=== PATIENT | female | born 2005 | race Caucasian/White ===

== ENCOUNTER 2025-05-04 17:00 | Emergency (ER) | payer OTHER, SELFPAY ==
[2025-05-04] VITALS (7 sets, daily range): BP systolic 115–136; BP diastolic 68–76; PULSE 76–112; RESP 15; TEMP 36.7–37; O2SAT 99–100; BMI 17.2
--- NOTE | 2025-05-04 17:09 | XR_ITS ---
PROCEDURE INFORMATION: Exam: XR Right Wrist Exam date and time: 05/04/2025 5:18 PM Age: 19 years old Clinical indication: Pain; Wrist; Right; Additional info: Fall, RT wrist pain TECHNIQUE: Imaging protocol: Radiologic exam of the right wrist. Views: 3 or more views. COMPARISON: No relevant prior studies available. FINDINGS: Bones/joints: Minimally impacted transverse fracture of the distal radius metaphysis. No definitive intra-articular extension. No widening of the distal radioulnar joint. Very small ulnar styloid tip fracture. Soft tissues: Soft tissue swelling. IMPRESSION: 1. Minimally impacted transverse fracture of the distal radius metaphysis without definitive intra-articular extension. 2. Very small ulnar styloid tip fracture.
--- NOTE | 2025-05-04 17:12 | ED_ITS ---
<Statement entered by Candace Hale DO - 05/04/25 20:24> I was consulted by the [facility], and we discussed the complexity of problems being addressed. I approve the treatment and management plan for this patient's care in the emergency department, thus performing a substantial portion of the medical decision making. Candace Hale DO Discharge Plan Disposition Patient Disposition: Home, Self-Care Referrals Follow up/Referrals: Ese Pradhan APRN [Primary Care Provider, Medical] - See instructions Dre Bonds DO [Staff Physician, Orthopedics] - See instructions Activity Restrictions/Add. Instructions Additional Instructions/Restrictions: Use ice, elevation, rest and ibuprofen and Tylenol. Please call Dr. Bonds's office for appointment for casting for the right wrist fractures. Clinical Impressions Clinical Impression: Distal radial fracture, Fracture of ulnar styloid Instructions Patient Instructions: Wrist Fracture Print Language Print Language: Maltese Discharge ED Provider: Candace Hale General Adult HPI <Cari Oropeza (ED), VETERINARY PARASITOLOGIST - Last Filed: 05/04/25 18:51> General Chief complaint: PAIN Stated complaint: AO 05/04/25 1640 injury right wrist,nose,lips Time Seen by Provider: 05/04/25 17:03 History of Present Illness HPI narrative: 19-year-old female presents to the ED today after jumping on a pogo stick and falling injuring her right wrist nose and lips. She says her wrist hurts to move, she has a knot on her right wrist. She also has an abrasion on her right knee. She has a cut on her nose but is very small but it is bleeding. Her lips have been bleeding. No other injuries noted. She did not lose consciousness. No other injury noted. Related Data Allergies Allergy/AdvReac Type Severity Reaction Status Date / Time No Known Allergies Allergy Verified 05/04/25 17:16 PFS <Cari Oropeza (ED), VETERINARY PARASITOLOGIST - Last Filed: 05/04/25 18:51> PFS Disclaimer: The information contained in this section may have been updated after the patient was seen, as this information can be updated by other users. Social History (Updated 05/04/25 @ 18:51 by Cari Oropeza (ED), VETERINARY PARASITOLOGIST) Smoking Status: Never smoker alcohol intake: former current occupational status: other Travel in the last 8 weeks?: None Have you lived/traveled outside US in past 30 days?: No Contact w/someone who lives/traveled outside US past 30 days?: No Exposure to someone with infectious disease in past 14 days?: No Do you have a fever (greater than 100.4 F or 38 C)?: No Have you tested positive for COVID-19?: No Exposed to someone with COVID-19 in past 14 days?: No Do you have a sore throat?: No Do you have a cough?: No Do you have any weakness?: No Do you have any diarrhea?: No Are you experiencing any unusual bleeding?: No Do you have any muscle aches/pain?: No Do you have any abdominal pain?: No Are you experiencing loss of taste or smell?: No <Cari Oropeza (ED), VETERINARY PARASITOLOGIST - Last Filed: 05/04/25 18:51> ROS Obtained: Yes Systems reviewed as appropriate & no additional complaints except as documented Physical Exam <Cari Oropeza (ED), VETERINARY PARASITOLOGIST - Last Filed: 05/04/25 18:51> General General appearance: alert Head Head exam: other (Small cut on nose, lips have a small abrasion) Eye Eye exam: Present PERRL and EOMI ENT ENT exam: Present mucous membranes moist Neck Neck exam: Present full ROM and trachea midline Respiratory Respiratory exam: Present normal lung sounds bilaterally Cardiovascular Cardiovascular exam: Present normal rhythm, tachycardia, +S1 and +S2 Abdominal Exam Abdominal exam: Present soft and normal bowel sounds Extremities Exam Extremities exam: Present tenderness (Right wrist with obvious deformity), normal capillary refill and edema Neurological Exam Neurological exam: Present alert and oriented X3 Skin Skin exam: Present warm, dry and erythema (Erythema to right knee, facial abrasion) Medical Decision Making <Cari Oropeza (ED), VETERINARY PARASITOLOGIST - Last Filed: 05/04/25 18:51> Medical Records Screening: Per USPSTF and CDC recommendations, given the prevalence of disease in our region, it is our hospital?s policy to screen for HIV and viral Hepatitis for all patients aged 18 and over and those with ongoing risk factors. Edil Inquiry Pt receiving controlled substance: No Edil was queried for this patient: No Vital Signs: 05/04/25 17:11 05/04/25 17:20 05/04/25 17:40 Temperature 98.6 F Temperature Source Oral Pulse Rate Pulse Rate [Right Radial] 112 H Respiratory Rate 15 Blood Pressure 136/73 132/76 Blood Pressure [Right Arm] 129/72 Blood Pressure Mean 90 99 Blood Pressure Mean [Right Arm] 91 Blood Pressure Source Blood Pressure Source [Right Arm] Automatic Cuff Blood Pressure Position Blood Pressure Position [Right Arm] Sitting 02 Sat by Pulse Oximetry 100 Oxygen Delivery Method Room Air 05/04/25 18:00 05/04/25 18:20 05/04/25 18:40 Temperature Temperature Source Pulse Rate Pulse Rate [Right Radial] Respiratory Rate Blood Pressure 124/70 115/68 118/71 Blood Pressure [Right Arm] Blood Pressure Mean 88 83 85 Blood Pressure Mean [Right Arm] Blood Pressure Source Blood Pressure Source [Right Arm] Blood Pressure Position Blood Pressure Position [Right Arm] 02 Sat by Pulse Oximetry Oxygen Delivery Method 05/04/25 18:47 Temperature 98.1 F Temperature Source Oral Pulse Rate 76 Pulse Rate [Right Radial] Respiratory Rate 15 Blood Pressure 118/71 Blood Pressure [Right Arm] Blood Pressure Mean Blood Pressure Mean [Right Arm] Blood Pressure Source Automatic Cuff Blood Pressure Source [Right Arm] Blood Pressure Position Sitting Blood Pressure Position [Right Arm] 02 Sat by Pulse Oximetry Oxygen Delivery Method Room Air Orders (Tests/Meds): ED MEDICATIONS Discontinued Medications Generic Name Dose Route Start Last Admin Trade Name Freq PRN Reason Stop Dose Admin Acetaminophen 1,000 mg 05/04/25 17:10 05/04/25 17:23 Acetaminophen 500mg Tab PO 05/04/25 17:11 1,000 mg ONCE ONE Administration ORDERS Category Date Time Status Elbow XR right minimum 3 views [XR elbow RT min 3V] Exams 05/04/25 17:47 Completed Stat Wrist XR right minimum 3 views [XR wrist RT min 3V] Exams 05/04/25 17:09 Completed Stat XR forearm RT 2V Stat Exams 05/04/25 17:47 Completed Medical Decision Narrative: patient is a 19-year-old female presenting to the emergency department for evaluation of right wrist pain, facial abrasions after a fall. Patient is hemodynamically stable and nontoxic-appearing upon arrival, afebrile. Differ ential diagnosis includes wrist fracture versus sprain or strain. Workup will be conducted with hematologic labs, specific imaging. Initial inventions include analgesics. Right wrist x-ray showed a minimally impacted transverse fracture of the distal radius without intra-articular extension and a very small ulnar styloid tip fracture. I placed a volar splint. She has good vascular return. Patient and mother educated on splint and to call Dr. Bonds tomorrow for appointment for casting. Safe for discharge home <Candace Hale, DO - Last Filed: 05/04/25 20:24> Vital Signs: 05/04/25 17:11 05/04/25 17:20 05/04/25 17:40 Temperature 98.6 F Temperature Source Oral Pulse Rate Pulse Rate [Right Radial] 112 H Respiratory Rate 15 Blood Pressure 136/73 132/76 Blood Pressure [Right Arm] 129/72 Blood Pressure Mean 90 99 Blood Pressure Mean [Right Arm] 91 Blood Pressure Source Blood Pressure Source [Right Arm] Automatic Cuff Blood Pressure Position Blood Pressure Position [Right Arm] Sitting 02 Sat by Pulse Oximetry 100 Oxygen Delivery Method Room Air 05/04/25 18:00 05/04/25 18:20 05/04/25 18:40 Temperature Temperature Source Pulse Rate Pulse Rate [Right Radial] Respiratory Rate Blood Pressure 124/70 115/68 118/71 Blood Pressure [Right Arm] Blood Pressure Mean 88 83 85 Blood Pressure Mean [Right Arm] Blood Pressure Source Blood Pressure Source [Right Arm] Blood Pressure Position Blood Pressure Position [Right Arm] 02 Sat by Pulse Oximetry Oxygen Delivery Method 05/04/25 18:47 Temperature 98.1 F Temperature Source Oral Pulse Rate 76 Pulse Rate [Right Radial] Respiratory Rate 15 Blood Pressure 118/71 Blood Pressure [Right Arm] Blood Pressure Mean Blood Pressure Mean [Right Arm] Blood Pressure Source Automatic Cuff Blood Pressure Source [Right Arm] Blood Pressure Position Sitting Blood Pressure Position [Right Arm] 02 Sat by Pulse Oximetry Oxygen Delivery Method Room Air Orders (Tests/Meds): ED MEDICATIONS Discontinued Medications Generic Name Dose Route Start Last Admin Trade Name Freq PRN Reason Stop Dose Admin Acetaminophen 1,000 mg 05/04/25 17:10 05/04/25 17:23 Acetaminophen 500mg Tab PO 05/04/25 17:11 1,000 mg ONCE ONE Administration ORDERS Category Date Time Status Elbow XR right minimum 3 views [XR elbow RT min 3V] Exams 05/04/25 17:47 Completed Stat Wrist XR right minimum 3 views [XR wrist RT min 3V] Exams 05/04/25 17:09 Completed Stat XR forearm RT 2V Stat Exams 05/04/25 17:47 Completed Medical Decision Narrative: patient is a 19-year-old female presenting to the emergency department for evaluation of right wrist pain, facial abrasions after a fall. Patient is hemodynamically stable and nontoxic-appearing upon arrival, afebrile. Differential diagnosis includes but not limited to: Fracture, dislocation, sprain, strain, amongst others. Workup will be conducted with hematologic labs, specific imaging. Initial inventions include analgesics. Right wrist x-ray showed a minimally impacted transverse fracture of the distal radius without intra-articular extension and a very small ulnar styloid tip fracture. I placed a volar splint. She has good vascular return. Patient and mother educated on splint and to call Dr. Bonds tomorrow for appointment for casting. Safe for discharge home Procedures <Cari Oropeza (ED), VETERINARY PARASITOLOGIST - Last Filed: 05/04/25 18:51> Orthopedic Splinting/Casting Injury #1: Side: right Upper Extremity Injury Location: wrist Upper Extremity Immobilizer: volar splint Post Cast/Splinting Neuro Status: intact Post Cast/Splinting Vasc Status: intact Critical Care <Cari Oropeza (ED), VETERINARY PARASITOLOGIST - Last Filed: 05/04/25 18:51> Critical Care Time Critical Care Time: No
--- NOTE | 2025-05-04 17:19 | PC.NURSE ---
XR AT BEDSIDE
[2025-05-04] MEDS: ACETAMINOPHEN 500MG TAB 1000 MG PO (17:23)
--- NOTE | 2025-05-04 17:47 | XR_ITS ---
PROCEDURE INFORMATION: Exam: XR Right Elbow Exam date and time: 05/04/2025 5:59 PM Age: 19 years old Clinical indication: Injury or trauma; Fall; Additional info: Fall, distal radius FX TECHNIQUE: Imaging protocol: Radiologic exam of the right elbow. Views: 3 or more views. COMPARISON: CR XR WRIST RT MIN 3V 05/04/2025 5:18 PM FINDINGS: Bones/joints: No acute fracture or malalignment. No joint effusion. Soft tissues: Unremarkable. IMPRESSION: No acute osseous findings.
--- NOTE | 2025-05-04 17:47 | XR_ITS ---
PROCEDURE INFORMATION: Exam: XR Right Forearm Exam date and time: 05/04/2025 5:59 PM Age: 19 years old Clinical indication: Injury or trauma; Fall; Additional info: Distal radius TECHNIQUE: Imaging protocol: Radiologic exam of the right forearm. Views: 2 views. COMPARISON: CR XR WRIST RT MIN 3V 05/04/2025 5:18 PM FINDINGS: Bones/joints: Minimally impacted distal radius metaphyseal fracture. Soft tissues: Distal forearm and wrist soft tissue swelling. IMPRESSION: Minimally impacted distal radius metaphyseal fracture.
== END 2025-05-04 18:50 | disposition home or self-care (01) ==
PROVIDERS: Emergency Provider Student in an Organized Health Care Education/Training Program
DX: S52.321A Displaced transverse fracture of shaft of right radius, initial encounter for closed fracture (principal); S52.611A Displaced fracture of right ulna styloid process, initial encounter for closed fracture; S80.211A Abrasion, right knee, initial encounter; S00.511A Abrasion of lip, initial encounter; W19.XXXA Unspecified fall, initial encounter
CPT/HCPCS: 29125; 73080; 73090; 73110; 99283

== ENCOUNTER 2025-05-18 15:25 | Outpatient (CLI) | payer OTHER, SELFPAY ==
--- NOTE | 2025-05-18 15:28 | XR_ITS ---
FINAL REPORT CLINICAL HISTORY: right wrist fx..shielded COMPARISON: 05/04/2025 FINDINGS: AP, oblique, and lateral views of the right wrist were obtained. Plaster cast obscures detail. There is minimal healing of the distal radial fracture. No change in alignment. No new osseous abnormality identified. The joint spaces are preserved. The soft tissues are normal. IMPRESSION: Minimal healing distal radial fracture. Reviewed, Interpreted and Dictated by Casie Herrera MD Transcribed by Moon Carey Authenticated and [facility]
== END 2025-05-18 23:59 | disposition home or self-care (01) ==
LOC: RAD 15:26
PROVIDERS: Visit Provider Physician Assistant
DX: S52.501D Unspecified fracture of the lower end of right radius, subsequent encounter for closed fracture with routine healing (principal); X58.XXXD Exposure to other specified factors, subsequent encounter
CPT/HCPCS: 73110

== ENCOUNTER 2025-05-19 10:54 | Emergency (ER) | payer OTHER, SELFPAY ==
--- OUTSIDE RECORDS SUMMARY | 2025-03-31 11:45 | XMS_ITS | Encounter Summary ---
Author Organization [facility] [facility] ([place], [place], [place], [place]) Address [address] [place] [address] Care Team Providers Care Boiler Fitter Name Role Phone Jazmin Fernandes DO Primary Care Provider [phone] Reason for Referral * Consultation (Routine) - Closed Specialty Diagnoses / Procedures Referred By Valentin t Referred To Contact Cardiology Diagnoses MVP (mitral valve prolapse) Jazmin Fernandes DO [address] [place] [address] Phone: tel: fax: [facility] Cardiology - [address] [place] [address] Phone: tel: fax: Referral ID Status Reason Start Date Expiration Date V isits Requested Visits Authorized [id number] Closed Specialty Services Required 03/31/2025 03/31/2026 1 1 Reason for Visit * Reason Comments Follow-up Labs. Encounter Details Date Type Department Care Team (Latest Contact Info) Description 03/31/2025 11:45 AM EDT Video - Telemedicine [facility] Primary Care [address] [place] [address] Jazmin Fernandes DO [address] [place] [address] Encounter to discuss test results (Primary Dx); MVP (mitral valve prolapse); Candidiasis; Vitamin C deficiency Social History Tobacco Use Types Packs/Day Years Used Date Smoking Tobacco: Never Smokeless Tobacco: Never Tobacco Cessation:Counseling Given: Not Answered Alcohol Use Standard Drinks/Week Comments Never 0 (1 standard drink = 0.6 oz pur e alcohol) Comments No Sex and Gender Information Value Date Recorded Sex Assigned at Not on file Legal Sex Female 12:40 PM CDT Gender Identity Not on file Sexual Orientation Not on file documented as of this encounter Last Filed Vital Signs Vital Sign Reading Time Taken Comments Blood Pressure - - Pulse - - Temperature - - Respiratory Rate - - Oxygen Saturation - - Inhaled Oxygen Concentration - - Weight 54 kg (119 lb) 03/31/2025 11:46 AM EDT Height 177.8 cm (5' 10 ) 03/31/2025 11:46 AM EDT Body Mass Index 17.07 03/31/2025 11:46 AM EDT documented in this encounter Progress Notes * Jazmin Fernandes, DO - 03/31/2025 11:45 AM EDT Type of Service: Office Visit via Telemedicine Subjective: Patient ID: Kelley Odell is a 19 y.o. female. Telemedicine Informed Consent: Telemedicine Audio/Visual Informed Consent: The risks, benefits and alternatives to the virtual visit were explained to the patient, and the patient and/or caregiver verbally consented to this modality of care. The visit was carried out using secure real-time audio-visual technology, and all parties in the room were identified and approved by the patient prior to the consult. Unless noted otherwise, the provider was located at their usual clinic location, and the patient was at their place of residence. Any physical exam was assisted by the patient and/or a caregiver. Mode of Transmission: Telemedicine via two-way interactive audiovisual telecommunication Basis for Telemedicine: Patient request Others in Attendance: None PATIENT LOCATION (City, State, Facility Type): [address] [place] [id number] PROVIDER LOCATION (City, State, Facility Type): [facility] [address] [place] [address] [place] [address] Dept Dept START TIME: 1252 STOP TIME: 1315 Chief Complaint Patient presents with Follow-up Labs. I have reviewed and/or updated the following: Tobacco Allergies Meds Problems Med Hx SurgHx Fam Hx HPI Kelley Odell is a 19 y.o. female with active problems as below presents to clinic today forFollow-up (Labs. ) Clobetasol steroids have helped rough patches have improved. Has not started flax seed oil is completing out omega -3 she currently has Has not started Vit C supplement Elevated B 6 on testing, did not take supplement prior to lab draw Stomach improved with treating fungal overgrowth Having daily BMs, denies bloating Objective: Outpatient Medications Prior to Visit Medication Sig Dispense Refill clobetasoL (CLOBEX) 0.05 % shampoo Apply thin film to dry scalp once daily; leave in place for 15 minutes, then add water, lather, and rinse thoroughly. Do not use more than 4 weeks in a row.. 118 mL3 clobetasoL (TEMOVATE) 0.05 % ointment Apply topically 2 (two) times daily. 30 g 0 UNKNOWN Vitamin D Digestive enzymes Erwin IGG 2000 Para 1 and [place]al[place] 2 Biotoxin binder Advanced tudca Calming magnesium Activated b complex Hyst pro Monterey 3 S.Mallory . No facility-administered medications prior to visit. Physical Exam Constitutional: Appearance: Normal appearance. Normal weight. Not ill-appearing. HENT: Head: Normocephalic and atraumatic. Nose: Nose normal. Neurological: General: No focal deficit present. Mental Status: Alert and oriented to person, place, and time. Mental status is at baseline. Psychiatric: Mood and Affect: Mood normal. Behavior: Behavior normal. Thought Content: Thought content normal. Judgment: Judgment normal. Vitals: 03/31/25 1146 Weight: 54 kg (119 lb) Height: 1.778 m (5' 10 ) Body mass index is 17.07 kg/m??. Results: Office Visit on 02/26/2025 Component Date Value Ref Range Status Vitamin B12 03/09/2025 771 232 - 1,245 pg/mL Final Vit. B1, Whole Blood 03/09/2025 160.4 66.5 - 200.0 nmol/L Final Vitamin B6 03/09/2025 96.5 (H) 3.4 - 65.2 ug/L Final Comment: Deficiency: <3.4 Marginal: 3.4 - 5.1 Adequate: >5.1 Folate (Folic Acid), Serum 03/09/2025 19.6 >3.0 ng/mL Final Comment: A serum folate concentration of less than 3.1 ng/mL is considered to represent clinical deficiency. Insulin 03/09/2025 11.3 2.6 - 24.9 uIU/mL Final LDH 03/09/2025 190 119 - 226 IU/L Final Assessment/Plan: Assessment/Plan: Kelley Odell is a 19 y.o. female who has been evaluated today for The primary encounter diagnosis was Encounter to discuss test results. Diagnoses of MVP (mitral valve prolapse), Candidiasis,and Vitamin C deficiency were also pertinent to this visit. Discussion: Stop additional B complex Continue MVI and Monterey -3 Start Vit C supplementation as discussed Supplement regimen is appropriate and there are signs of maldigestion. I suspect she is not absorbing well and this is leading to ketosis and nutritional deficiencies Continue to work with health motor coach operator and start Repairavite for gut cell health. MVP newly identified asymptomatic Referral to cards for evaluation and monitoring Supplement recommendations: Monterey-3 Vegan Blackberry Smoothie (454 Grams) ([employer]): Please take 1 Tablespoon (tbsp) x once per day / anytime (complete the bottle). RepairVite??? Caramel (155.1 Grams) ([employer]): Please take 1.00 scoop x once per day /anytime for 1 month ICD-10-CM ICD-9-CM 1. Encounter to discuss test results Z71.2 V65.49 2. MVP (mitral valve prolapse) I34.1 424.0 Ambulatory referral to Cardiology 3. Candidiasis B37.9 112.9 4. Vitamin C deficiency E54 267 Return in about 3 months (around 07/01/2025) for Establish care with Allison Junior APRN. Jazmin Fernandes, DO This note was partially generated using AisleFinderation System, and there may be some incorrect words, spellings, and punctuation that were not noted in checking the note before saving. Note to Patient: The Cure Act makes medical noted like these available to patients in the interest of transparency. However, be advised this is a medical document. It is intended as peerto peer communication. It is written in medical language and may contain abbreviations or verbiage that are unfamiliar. It may appear blunt or direct. Medical documents are intended to carry relevantinformation, facts as evident, and the clinical opinion of the physician. documented in this encounter Plan of Treatment Upcoming Encounters Date Type Department Care Team (Late st Contact Info) Description 11/02/2025 8:30 AM EDT Office Visit [facility] Cardiology - [address] [place] [id number] Sirena Caldera MD [address] [place], [place] [id number] 05/04/2026 9:00 AM EDT Office Visit [facility] Care [address] [place] [address] Ese Pradhan, FRUIT CHECKER [address] [place] [address] Scheduled Referrals Name Type Priority Associated Diagnoses Order Schedule Ambulatory referral to Cardiology Outpatient Referral Routine MVP (mitral valve prolapse) Expected: 03/31/2025 (Approximate), Expires: 03/31/2026 documented as of this encounter Visit Diagnoses Diagnosis Encounter to discuss test results- Primary Other specified counseling MVP (mitral valve prolapse) Mitral valve disorders Candidiasis Candidiasis of unspecified site Vitamin C deficiency Ascorbic acid deficiency documented in this encounter Care Teams Boiler Fitter Relationship Specialty Start Date End Date Jazmin Fernandes DO [address] [place] [address] PCP - General Family Medicine 02/26/25 05/03/25 documented as of this encounter
--- OUTSIDE RECORDS SUMMARY | 2025-05-04 08:45 | XMS_ITS | Encounter Summary ---
Author Organization [employer] ([place], [place], [place], [place]) Address [address] [place] [address] Care Team Providers Care Coloring Checker Name Role Phone Ese Pradhan APRN Primary Care Provider [phone] Reason for Visit * Reason Comments Establish Care Pt referred for MVP Pt states intermittent palpsDenies CP/SOA * Consultation (Routine) - Closed Specialty Diagnoses / Procedures Referred By Contac t Referred To Contact Cardiology Diagnoses MVP (mitral valve prolapse) Jazmin Fernandes DO [address] [place] [address] Phone: tel: fax: [facility] [address] [address] Phone: tel: fax: Referral ID Status Reason Start Date Expiration Date V isits Requested Visits Authorized [id number] Closed Specialty Services Required 03/31/2025 03/31/2026 1 1 Encounter Details Date Type Department Care Team (Late st Contact Info) Description 05/04/2025 8:45 AM EDT Office Visit [facility] [address] [address] Jazmin Fernandes DO [address] [place] [address] Sirena Caldera MD [address] [facility] [address] [place] [address] Cardiac murmur, previously undiagnosed (Primary Dx); Nonrheumatic mitral valve regurgitation; Mitral valve prolapse; Palpitations Social History Tobacco Use Types Packs/Day Years [...] Sign Reading Time Taken Comments Blood Pressure 112/69 05/04/2025 8:52 AM EDT Pulse 77 05/04/2025 8:52 AM EDT Temperature - - Respiratory Rate - - Oxygen Saturation 99% 05/04/2025 8:52 AM EDT Inhaled Oxygen Concentration - - Weight 55.8 kg (123 lb) 05/04/2025 8:52 AM EDT Height - - Body Mass Index 17.65 03/31/2025 11:46 AM EDT documented in this encounter Patient Instructions * Attachments The following attachments cannot be sent through Care Everywhere. * Mitral Valve Regurgitation (Iranian) documented in this encounter Progress Notes * Sirena Caldera MD - 05/04/2025 8:45 AM EDT Subjective: Kelley Odell is a 19 y.o. female. Chief Complaint Patient presents with [facility] Care Pt referred for MVP Pt states intermittent palps Denies CP/SOA I have reviewed and/or updated the following: Tobacco Allergies Meds Problems Med Hx Surg Hx Fam Hx 19 yo female new patient with newly dx MVP and moderate MR. She denies CP nor SOA. No physical limitations. Her mother accompanies her today. She says her father was evaluated for Marfan's due to similar body habitus and was told he didn't have it. Pt did have one episode of palpitations after awakening in the morning but felt it was due to panic attack. No further episodes. She denies hyper flexibility. No Fhx of aortic dissection or SCD Review of Systems Constitutional: Negative. HENT: Negative. Eyes: Negative. Respiratory: Negative. Cardiovascular: Positive for palpitations. Gastrointestinal: Negative. Endocrine: Negative. Genitourinary: Negative. Musculoskeletal: Negative. Skin: Negative. Allergic/Immunologic: Negative. Neurological: Negative. Hematological: Negative. Psychiatric/Behavioral: Negative. Objective: BP 112/69 Pulse 77 Wt 55.8 kg (123 lb) SpO2 99% BMI 17.65 kg/m?? Physical Exam Vitals reviewed. Constitutional: Comments: Tall, thin body habitus HENT: Head: Normocephalic and atraumatic. Cardiovascular: Rate and Rhythm: Normal rate and regular rhythm. Pulses: Normal pulses. Heart sounds: Murmur heard. Systolic murmur is present with a grade of 3/6. Pulmonary: Effort: Pulmonary effort is normal. Breath sounds: Normal breath sounds. Abdominal: General: Bowel sounds are normal. Palpations: Abdomen is soft. Musculoskeletal: General: Normal range of motion. Right lower leg: No edema. Left lower leg: No edema. Skin: General: Skin is warm and dry. Neurological: General: No focal deficit present. Mental Status: She is alert. Mental status is at baseline. Psychiatric: Mood and Affect: Mood normal. Thought Content: Thought content normal. ECG: NSR, DAVID, RsR' Assessment: 1. Cardiac murmur, previously undiagnosed 2. Nonrheumatic mitral valve regurgitation 3. Mitral valve prolapse 4. Palpitations Plan: 1. MVP and moderate MR - asymptomatic - will see back in 6 months - may try to get genetic testing to assess for Marfans/Loeys-stephanie, etc. If symptoms arise, repeat echo 2. Palpitations - one time episode -pt will call if recurrent and will get monitor Return in about 6 months (around 11/01/2025). documented in this encounter Plan of Treatment Upcoming Encounters Date Type Department Care Team (Late st Contact Info) Description 11/02/2025 8:30 AM EDT Office Visit [facility] - [facility] [address] [place] [address] Sirena Caldera MD [address] [facility] [address] [place] [address] 05/04/2026 9:00 AM EDT Office Visit [facility] [address] [place] [address] Ese Pradhan APRN [address] [place] [address] documented as of this encounter Procedures Procedure Name Priority Date/Time Associated Diagnosis Comments ECG 12-LEAD Routine 05/04/2025 12:16 PM EDT Cardiac murmur, previously undiagnosed Nonrheumatic mitral valve regurgitation Mitral valve prolapse Palpitations documented in this encounter Results * ECG 12 lead (05/04/2025 12:16 PM EDT) Sirena Caldera MD ECG ORDERABLES Final Result documented in this encounter Visit Diagnoses Diagnosis Cardiac murmur, previously undiagnosed- Primary Nonrheumatic mitral valve regurgitation Mitral valve prolapse Mitral valve disorders Palpitations documented in this encounter Care Teams Coloring Checker Relationship Specialty Start Date End Date Ese Pradhan APRN [address] [place] [address] PCP - General Family Medicine 05/04/25 documented as of this encounter
--- OUTSIDE RECORDS SUMMARY | 2025-05-04 10:30 | XMS_ITS | Encounter Summary ---
Author Organization [employer] ([place], [place], [place], [place]) Address [address] [place] [address] Care Team Providers Care News Clerk Name Role Phone Ese Pradhan APRN Primary Care Provider [phone] Reason for Referral * Consultation (Routine) - Authorized Specialty Diagnoses / Procedures Referred By Valentin jacome Referred To Contact Dermatology Diagnoses Psoriasis Ese Pradhan APRN [address] [place] [address] Phone: tel: fax: Referral ID Status Reason Start Date Expiration Date Visits Requested Visits Authorized [id number] Authorized Specialty Services Required 05/04/2025 05/04/2026 1 1 Reason for Visit * Reason Comments Establish Care Establish care Encounter Details Date Type Department Care Team (Late st Contact Info) Description 05/04/2025 10:30 AM EDT Office Visit [facility] Care [address] [place] [address] Ese Pradhan APRN [address] [place] [address] Encounter to establish care (Primary Dx); Psoriasis; MVP (mitral valve prolapse) Social History Tobacco Use Types Packs/Day Years [...] Sign Reading Time Taken Comments Blood Pressure 109/72 05/04/2025 10:09 AM EDT Pulse 79 05/04/2025 10:09 AM EDT Temperature 36.4 C (97.6 F) 05/04/2025 10:09 AM EDT Respiratory Rate 16 05/04/2025 10:09 AM EDT Oxygen Saturation 100% 05/04/2025 10:09 AM EDT Inhaled Oxygen Concentration - - Weight 54.5 kg (120 lb 4 oz) 05/04/2025 10:09 AM EDT Height 177.8 cm (5' 10 ) 05/04/2025 10:09 AM EDT Body Mass Index 17.25 05/04/2025 10:09 AM EDT documented in this encounter Patient Instructions * Patient Instructions* Ese Pradhan APRN - 05/04/2025 10:30 AM EDT [facility] Address: [address] [place] [address] documented in this encounter Progress Notes * Ese Pradhan APRN - 05/04/2025 10:30 AM EDT Images from the original note were not included. Subjective: Kelley Odell is a 19 y.o. female. Chief Complaint Patient presents with Establish Care Establish care I have reviewed and/or updated the following: Tobacco Allergies Meds Problems Med Hx Surg Hx Fam Hx Here to establish care with me, previously patient of Dr. Fernandes Previously working with health agile scrum coach for prevention of psoriasis, did a mold detox, liver cleanse, and parasite cleanse. States this did not help with her psoriasis. States the cream helps her, but as soon as she stops cream, spots come back. These are on her face,and over the rest of her body. Previously visited the knockout machine operator and was also given a cream, would like to see if there are other treatment options. MVP - States this is largely asymptomatic, occasionally has heart palpitations that last only a second. Does not get dizzy spells or have episodes of syncope. States her activity tolerance is good, does not have issues with shortness of breath or chest pain with activity. Review of Systems Constitutional: Negative for activity change, appetite change, chills, fatigue, fever and unexpected weight change. Respiratory: Negative for cough, chest tightness, shortness of breath and wheezing. Cardiovascular: Negative for chest pain, palpitations and leg swelling. Gastrointestinal: Negative for abdominal distention, abdominal pain, blood in stool, constipation, diarrhea, nausea and vomiting. Skin: Positive for rash and wound. Negative for pallor. Psychiatric/Behavioral: Negative for confusion, decreased concentration, hallucinations and sleep disturbance. The patient is not hyperactive. Objective: BP 109/72 Pulse 79 Temp 97.6 ??F (36.4 ??C) Resp 16 Ht 1.778 m (5' 10 ) Wt 54.5 kg (120 lb 4 oz) LMP 04/21/2025 SpO2 100% BMI 17.25 kg/m?? Physical Exam Vitals and nursing note reviewed. Constitutional: General: She is not in acute distress. Appearance: Normal appearance. She is not ill-appearing. HENT: Head: Normocephalic. Eyes: Extraocular Movements: Extraocular movements intact. Conjunctiva/sclera: Conjunctivae normal. Pupils: Pupils are equal, round, and reactive to light. Cardiovascular: Rate and Rhythm: Normal rate and regular rhythm. Pulses: Normal pulses. Heart sounds: Murmur heard. Pulmonary: Effort: Pulmonary effort is normal. No respiratory distress. Breath sounds: Normal breath sounds. No stridor. No wheezing, rhonchi or rales. Chest: Chest wall: No tenderness. Abdominal: General: Abdomen is flat. There is no distension. Palpations: Abdomen is soft. There is no mass. Tenderness: There is no abdominal tenderness. There is no guarding or rebound. Hernia: No hernia is present. Musculoskeletal: Right lower leg: No edema. Left lower leg: No edema. Skin: General: Skin is warm and dry. Findings: Lesion present. Comments: Diffuse scaling erythematous patches Neurological: General: No focal deficit present. Mental Status: She is alert and oriented to person, place, and time. Psychiatric: Mood and Affect: Mood normal. Behavior: Behavior normal. Assessment: 1. Encounter to establish care 2. Psoriasis 3. MVP (mitral valve prolapse) Plan: ICD-10-CM ICD-9-CM 1. Encounter to establish care Z76.89 V65.8 Reviewed PMH. 2. Psoriasis L40.9 696.1 Ambulatory referral to Dermatology Given suggestions of preferred dermatologists, hopeful to have alternative therapies presented. 3. MVP (mitral valve prolapse) I34.1 424.0 Continue following with cardiology. Discussed red flag symptoms of shortness of breath, chest pressure, or dizziness. Return in about 1 year (around 05/04/2026) for Annual Physical. documented in this encounter Plan of Treatment Upcoming Encounters Date Type Department Care Team (Late st Contact Info) Description 11/02/2025 8:30 AM EDT Office Visit [facility] Cardiology - [address] [place] [address] Sirena Caldera MD [address] [place] [address] 05/04/2026 9:00 AM EDT Office Visit [facility] [address] [place] [address] Ese Pradhan APRN [address] [id number] Scheduled Referrals Name Type Priority Associated Diagnoses Order Schedule Ambulatory referral to Dermatology Outpatient Referral Routine Psoriasis Expected: 05/04/2025, Expires: 08/02/2025 documented as of this encounter Visit Diagnoses Diagnosis Encounter to establish care- Primary Psoriasis Other psoriasis MVP (mitral valve prolapse) Mitral valve disorders documented in this encounter Care Teams News Clerk Relationship Specialty Start Date End Date Ese Pradhan APRN [address] [place] [address] PCP - General Family Medicine 05/04/25 documented as of this encounter
--- NOTE | 2025-05-19 10:54 | ECG_ITS ---
APPROVED REPORT Exam: Resting ECG HR:74 bpm ECG Measurements Heart Rate 74 AXES MO 137 P 77 QRSd 100 QRS 86 QT 388 T 64 QTc 415 Conclusion SINUS RHYTHM POSSIBLE RIGHT VENTRICULAR CONDUCTION DELAY [RSR (QR) IN V1/V2] Electronically signed by : SAQIB AMARAL, 05/21/2025 09:25:32
[2025-05-19 10:55] VITALS: BP 154/129; PULSE 79; RESP 15; TEMP 36.6; O2SAT 100; BMI 17.2
--- NOTE | 2025-05-19 10:58 | ED_ITS ---
<Statement entered by Toy Bai MD - 05/19/25 16:21> I consulted the [facility], and we discussed the complexity of the problems being addressed. I approved the treatment and management plan for this patient's care in the emergency department, thus performing a substantial portion of the medical decision making. Romero Bai MD Discharge Plan Disposition Patient Disposition: Home, Self-Care Condition: Good Prescriptions Prescriptions: No Action No Known Home Medications Referrals Follow up/Referrals: Provider,Referral, MD [Referring, Medical] - See instructions Activity Restrictions/Add. Instructions Additional Instructions/Restrictions: Please return to the emergency department with any worsening signs or symptoms. Please follow-up with your PCP and orthopedic doctor in the upcoming days/weeks. Clinical Impressions Clinical Impression: Syncope, vasovagal Instructions Patient Instructions: DI for Syncope in Adults (Fainting) Print Language Print Language: Nigerien Discharge ED Provider: Toy Bai General Adult HPI General Chief complaint: Syncope Stated complaint: seizure Time Seen by Provider: 05/19/25 10:56 Mode of Arrival: Ambulatory Source of Information: Patient and Parent(s) Limitations: No Limitations History of Present Illness HPI narrative: 19-year-old female presents the emergency department from orthopedic clinic, for a presyncopal versus syncopal episode, she is accompanied by her mother, patient was having her cast removed via cast saw, when she felt like she was getting hot nauseous and lightheaded, appeared to have a presyncopal/syncopal event according to mother and orthopedic clinic staff. Patient states she has not had anything like this happen before, she states that she is currently asymptomatic, no fever no chills no chest pain no shortness of breath no nausea no vomiting no constipation no diarrhea, no urinary symptomatology, patient is a non-smoker, denies any alcohol or drug use, has no other real relevant past medical history except for distal radius fracture which is currently undergoing treatment with cast immobilization via orthopedics. Initial triage vitals are unremarkable. Patient has no history of seizure disorder, no previous history of presyncopal/syncopal events. Please note that above description of symptoms, in this electronic medical record under categorization of recalled from ER triage doctor by RN are reflective of an initial nursing assessment, however, is not reflective of my full history and physical exam that was personally taken and clarified. Consequentially, this preceding description of symptoms, which may include the patient's categorized chief complaint in the EMR, do not reflect my personal clinical impression, and the ultimate description of history of present illness and patient stated complaints should be deferred to this section of the note. Unless stated otherwise or congruent with this section of the note, additional signs, symptoms, or incongruence should be interpreted as inaccurate with my clinical impression. Onset (ago): hour(s) Related Data Home Medications ?Medication ?Instructions ?Recorded ?Confirmed No Known Home Medications 05/05/2504/28 Allergies Allergy/AdvReac Type Severity Reaction Status Date / Time No Known Allergies Allergy Verified 05/19/25 09:40 [facility] Disclaimer: The information contained in this section may have been updated after the patient was seen, as this information can be updated by other users. Social History Smoking Status: Never smoker alcohol intake: former current occupational status: other Travel in the last 8 weeks?: None Have you lived/traveled outside [place] in past 30 days?: No Contact w/someone who lives/traveled outside US past 30 days?: No Exposure to someone with infectious disease in past 14 days?: No Do you have a fever (greater than 100.4 F or 38 C)?: No Have you tested positive for COVID-19?: No Exposed to someone with COVID-19 in past 14 days?: No Do you have a sore throat?: No Do you have a cough?: No Do you have any weakness?: No Do you have any diarrhea?: No Are you experiencing any unusual bleeding?: No Do you have any muscle aches/pain?: No Do you have any abdominal pain?: No Are you experiencing loss of taste or smell?: No ROS Obtained: Yes All systems reviewed & no additional complaints except as documented Physical Exam General General appearance: alert and in no apparent distress Head Head exam: atraumatic and normocephalic Eye Eye exam: Present PERRL and EOMI ENT ENT exam: Present mucous membranes moist Neck Neck exam: Present normal inspection Chest Chest inspection: Present normal inspection and symmetric chest wall rise Respiratory Respiratory exam: Present normal lung sounds bilaterally; Absent respiratory distress Cardiovascular Cardiovascular exam: Present regular rate and normal rhythm Abdominal Exam Abdominal exam: Present soft; Absent tenderness Extremities Exam Extremities exam: Present normal inspection Neurological Exam Neurological exam: Present alert, oriented X3 and other (Nonpostictal appearing, moves extremities to command) Psychiatric Psychiatric exam: Present normal affect Skin Skin exam: Present warm and dry Medical Decision Making Medical Records Medical records reviewed: Yes I reviewed the patient's medical records. Screening: Per USPSTF and CDC recommendations, given the prevalence of disease in our region, it is our hospital?s policy to screen for HIV and viral Hepatitis for all patients aged 18 and over and those with ongoing risk factors. Edil Inquiry Pt receiving controlled substance: No Edil was queried for this patient: No Vital Signs: 05/19/25 10:55 05/19/25 11:10 Temperature 97.9 F Temperature Source Oral Pulse Rate [Right Radial] 79 Respiratory Rate 15 Blood Pressure [Right Arm] 154/129 H Blood Pressure Mean [Right Arm] 137 Blood Pressure Source [Right Arm] Automatic Cuff Blood Pressure Position [Right Arm] Supine 02 Sat by Pulse Oximetry 100 100 Oxygen Delivery Method Room Air Room Air Lab Data Lab results reviewed: Yes I reviewed the patient's lab results. Lab Results 05/19/25 10:55: WBC 9.3, RBC 4.42, Hgb 13.1, Hct 39.4, MCV 89.1, MCH 29.6, MCHC 33.2, RDW 12.0, Plt Count 230, MPV 10.3, Neut % (Auto) 52.8, Lymph % (Auto) 34.5, [place] % (Auto) 8.0, Eos % (Auto) 3.7, Baso % (Auto) 0.5, Neut # (Auto) 4.9, Lymph # (Auto) 3.2, [place] # (Auto) 0.7, Eos # (Auto) 0.3, Baso # (Auto) 0.1, Sodium 138, Potassium 3.9, Chloride 103, Carbon Dioxide 25, Anion Gap 13.9, BUN 14, Creatinine 0.70, Estimated Creat Clear 110, Estimated GFR 107, Est GFR ( Amer) 129, Glucose 110 H, Lactate 1.8, Calcium 9.3, Total Bilirubin 0.6, AST 41 H, ALT 31, Alkaline Phosphatase 59, Troponin I < 0.01, Total Protein 7.7, Albumin 4.8, Globulin 2.9, Albumin/Globulin Ratio 1.7 05/19/25 10:55 05/19/25 10:55 Orders (Tests/Meds): ORDERS Category Date Time Status Complete Blood Count Auto Diff Stat Lab 05/19/25 10:55 Completed Comprehensive Metabolic Panel Stat Lab 05/19/25 10:55 Completed HIV Combo Stat Lab 05/19/25 10:55 Received Hepatitis C Ab Qual. W/ RFX Stat Lab 05/19/25 10:55 Received Lactic Acid Stat Lab 05/19/25 10:55 Completed Troponin I Q3H Lab 05/19/25 14:00 Ordered Troponin I Q3H Lab 05/19/25 17:00 Ordered Troponin I Stat Lab 05/19/25 10:55 Completed Medical Decision Narrative: 19-year-old female presents the emergency department with a presyncopal/syncopal event, see HPI for detail past medical history, differential diagnose include but not limited to, vasovagal syncope, situational syncope, cardiogenic syncope, cardiac arrhythmia, electrolyte disturbance, thought to be less likely but seizure is in differential, among others. I discussed this patient's case with the attending physician Dr. Bai Will obtain basic laboratory studies troponin, lactic acid level, EKG. CBC unremarkable. CMP is unremarkable, no lactic acidosis, troponin within normal limits at less than zero 0.1 I discussed the results with the patient at the bedside, patient most likely had a benign situational/vasovagal syncopal episode, classic presentation with event/clinical history as provided by patient and family. Patient and family were given strict ED return precautions, patient has remained hemodynamically stable throughout her time in the emergency department. She has no other acute complaints. Patient is cleared to be discharged home to self-care. Patient will follow-up with orthopedic provider and PCP in the upcoming days/weeks. Critical Care Critical Care Time Critical Care Time: No
[2025-05-19 11:04] LABS: Hematocrit 39.4 % (37.0-47.0); Hemoglobin 13.1 g/dL (12.2-16.2); Immature Granulocytes % 0.5 %; Mean Corpuscular HGB Conc 33.2 g/dL (31.8-35.4); Mean Corpuscular Hemoglobin 29.6 pg (27.0-31.2); Mean Corpuscular Volume 89.1 fl (81-99); Nucleated Red Blood Cells % 0 %; Platelet Count 230 K/mm3 (142-424); Red Blood Count 4.42 M/mm3 (4.20-5.40); Red Cell Distribution Width-SD 39.4 fL; White Blood Count 9.3 K/mm3 (4.5-13.0)
--- OUTSIDE RECORDS SUMMARY | 2025-05-19 11:04 | XMS_ITS | Encounter Summary ---
Author Organization [email or web address] ([place], [place], [place], [place]) Address [address] [place] [address] Care Team Providers Care General Road Supervisor Name Role Phone Ese Pradhan APRN Primary Care Provider [phone] Encounter Details Date Type Department Care Team (Late st Contact Info) Description 05/14/2025 Abstract [facility] Primary Care [address] [place] [address] Ese Pradhan APRN [address] [place] [address] Social History Tobacco Use Types Packs/Day Years Used Date Smoking Tobacco: Never Smokeless Tobacco: Never Alcohol Use Standard Drinks/Week Comments Never 0 (1 standard drink = 0.6 oz pur e alcohol) Comments No Sex and Gender Information Value Date Recorded Sex Assigned at Not on file Legal Sex Female 12:40 PM CDT Gender Identity Not on file Sexual Orientation Not on file documented as of this encounter Plan of Treatment Upcoming Encounters Date Type Department Care Team (Late st Contact Info) Description 11/02/2025 8:30 AM EDT Office Visit [facility] Cardiology - [address] [place] [id number] Sirena Caldera MD [address] [place], [place] [id number] 05/04/2026 9:00 AM EDT Office Visit [facility] Primary Care [address] [place] [address] Ese Pradhan, ADULT PROTECTIVE CASEWORKER [address] [place] [address] documented as of this encounter Visit Diagnoses Not on filedocumented in this encounter Care Teams General Road Supervisor Relationship Specialty Start Date End Date Ese Pradhan, ADULT PROTECTIVE CASEWORKER [address] [place] [address] PCP - General Family Medicine 05/04/25 documented as of this encounter
--- OUTSIDE RECORDS SUMMARY | 2025-05-19 11:04 | XMS_ITS | Encounter Summary ---
Author Organization [employer] ([place], [place], [place], [place]) Address [address] [place] [address] Care Team Providers Care Publishing Systems Analyst Name Role Phone Ese Pradhan APRN Primary Care Provider [phone] Encounter Details Date Type Department Care Team (Late st Contact Info) Description 05/08/2025 Abstract [facility] Primary Care [address] [place] [address] Ese Pradhan APRN [address] [place] [address] Social History Tobacco Use Types [...] Description 11/02/2025 8:30 AM EDT Office Visit [facility] Cardiology - [address] [place] [phone] Sirena Caldera MD [address] [place], [place] [id number] 05/04/2026 9:00 AM EDT Office Visit [facility] Primary Care [address] [place] [address] Ese Pradhan, BILINGUAL BRANCH MANAGER [address] [place] [address] documented as of this encounter Visit Diagnoses Not on filedocumented in this encounter Care Teams Publishing Systems Analyst Relationship Specialty Start Date End Date Ese Pradhan, BILINGUAL BRANCH MANAGER [address] [place] [address] PCP - General Family Medicine 05/04/25 documented as of this encounter
--- OUTSIDE RECORDS SUMMARY | 2025-05-19 11:04 | XMS_ITS | Encounter Summary ---
Author Organization [employer] ([place], [place], [place], [place]) Address [address] [place] [address] Care Team Providers Care Production Lead Name Role Phone CarolynnEse leonardo Jamari GAINES Primary Care Provider [phone] Encounter Details Date Type Department Care Team (Late st Contact Info) Description 05/08/2025 Abstract [facility] Primary Care [address] [place] [address] Jazmin Fernandes DO [address] [place] [address] Social History Tobacco Use Types [...] Description 11/02/2025 8:30 AM EDT Office Visit [facility] Cardiology - [address] [place] [address] Sirena Caldera MD [address] [place], [place] [id number] 05/04/2026 9:00 AM EDT Office Visit [facility] Primary Care [address] [place] [address] Ese Pradhan APRN [address] [place] [address] documented as of this encounter Visit Diagnoses Not on filedocumented in this encounter Care Teams Production Lead Relationship Specialty Start Date End Date Ese Pradhan APRN [address] [place] [address] PCP - General Family Medicine 05/04/25 documented as of this encounter
--- OUTSIDE RECORDS SUMMARY | 2025-05-19 11:04 | XMS_ITS | Referral Summary ---
Author Organization [employer] ([place], [place], [place], [place]) Address [address] [place] [address] Care Team Providers Care Fashion Intern Name Role Phone Ese Pradhan APRN Primary Care Provider [phone] Encounters Date Type Department Care Team Description 05/14/2025 Abstract [facility] [address] [place] [address] Ese Pradhan, AIR TUCKER 05/08/2025 Abstract [facility] [address] [place] [address] Jazmin Fernandes DO 05/08/2025 Abstract [facility] [address] [place] [address] Ese Pradhan, AIR TUCKER 05/04/2025 10:30 AM EDT Office Visit [facility] [address] [place] [address] Ese Pradhan, AIR TUCKER Encounter to establish care (Primary Dx); Psoriasis; MVP (mitral valve prolapse) 05/04/2025 Travel 05/04/2025 8:45 AM EDT Office Visit [facility] Card[facility] - [place] [facility] [address] [place] [address] Jazmin Fernandes DO Morton, Suzanne M, MD Cardiac murmur, previously undiagnosed (Primary Dx); Nonrheumatic mitral valve regurgitation; Mitral valve prolapse; Palpitations 03/31/2025 11:45 AM EDT Video - Telemedicine [facility] [address] [place] [address] Jazmin Fernandes DO Encounter to discuss test results (Primary Dx); MVP (mitral valve prolapse); Candidiasis; Vitamin C deficiency 03/13/2025 2:20 PM EDT - 03/13/2025 11:59 PM EDT Hospital Encounter [facility] Non-Invasive Cardiology [address] [place] [address] Jazmin Fernandes DO Cardiac murmur, previously undiagnosed Discharge Disposition: Home or Self Care 03/12/2025 Travel 03/03/2025 Abstract [facility] [address] [place] [address] Jazmin Fernandes DO 03/03/2025 Abstract [facility] [address] [place] [address] Jazmin Fernandes DO 03/03/2025 Abstract [facility] Primary [facility] [address] [place] [address] Jazmin Fernandes DO 03/03/2025 Abstract [facility] Primary [facility] [address] [place] [address] Jazmin Fernandes DO 02/26/2025 Travel 02/26/2025 9:30 AM EDT Office Visit [facility] Primary [facility] [address] [place] [address] Jazmin Fernandes DO Encounter to establish care (Primary Dx); Psoriasis; Scalp psoriasis; Cardiac murmur, previously undiagnosed; Vitamin B deficiency; Underweight (BMI < 18.5); Elevated uric acid in blood; Ketosis (HCC); Candidiasis; Vitamin C deficiency from Last 3 Months Allergies No known active allergies Medications UNKNOWN Vitamin D Digestive enzymes Erwin IGG 2000 Para 1 and [place] 2 Biotoxin binder Advanced tudca [place] magnesium Activated b complex Hyst pro [place] 3 [place] . Active clobetasoL (CLOBEX) 0.05 % shampooIndicati ons:Scalp psoriasis Apply thin film to dry scalp once daily; leave in place for 15 minutes, then add water, lather, and rinse thoroughly. Do not use more than 4 weeks in a row.. 118 mL 3 5 Active clobetasoL (TEMOVATE) 0.05 % ointmentIndicat ions:Psoriasis Apply topically 2 (two) times daily. 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 Cardiac murmur, previously undiagnosed Underweight (BMI < 18.5) 02/26/2025 Vitamin B deficiency 02/26/2025 Ketosis 02/26/2025 Elevated uric acid in blood 02/26/2025 Candidiasis 02/26/2025 Social History Tobacco Use Types Packs/Day Years [...] on file Sexual Orientation Not on file Last Filed Vital Signs Vital Sign Reading [...] Mass Index 17.25 05/04/2025 10:09 AM EDT Plan of Treatment Upcoming Encounters Date Type Department Care Team (Late st Contact Info) Description 11/02/2025 8:30 AM EDT Office Visit [facility] Cardiology - [address] [place] [address] Sirena Caldera MD [address] [place] [address] 05/04/2026 9:00 AM EDT Office Visit [facility] [address] [place] [address] Ese Pradhan, EDER [address] [place] [address] Procedures Procedure Name Priority Date/Time Associated Diagnosis Comments ECG 12-LEAD Routine 05/04/2025 12:16 PM EDT Cardiac murmur, previously undiagnosed Nonrheumatic mitral valve regurgitation Mitral valve prolapse Palpitations ECHO COMPLETE (DOPPLER / COLOR) W CONTRAST Routine 03/13/2025 3:16 PM EDT Cardiac murmur, previously undiagnosed LACTATE DEHYDROGENASE (LDH) Routine 03/09/2025 8:13 AM EDT Ketosis (HCC) INSULIN, FASTING Routine 03/09/2025 8:13 AM EDT Vitamin B deficiency Ketosis (HCC) FOLATE, SERUM Routine 03/09/2025 8:13 AM EDT Vitamin B deficiency VITAMIN B6, PLASMA Routine 03/09/2025 8: 13 AM EDT Vitamin B deficiency VITAMIN B1 (THIAMINE), WHOLE BLOOD, LC/MS/MS Routine 03/09/2025 8:13 AM EDT Vitamin B deficiency VITAMIN B12 Routine 03/09/2025 8:13 AM EDT Vitamin B deficiency from Last 3 Months Results * ECG 12 lead (05/04/2025 12:16 PM EDT) us Sirena Caldera MD ECG ORDERABLES Final Result * ECHO COMPLETE (DOPPLER / COLOR) W CONTRAST (03/13/2025 3:16 PM EDT) Anatomical Region Laterality Modality Heart Vascular Ultraso und 03/13/2025 2:37 PM EDT Narrative 03/14/2025 12:30 PM EDT TRANSTHORACIC ECHOCARDIOGRAPHY REPORT Demographics Patient Name: MERCEDES PANG : 2005 LATESHA Age: 19 year(s) Corporate ID Number: [id number] Gender Female Scoop Machine Operator: Manolo Frank, Height: [address] Referring Physician: MARLI HIGGINS Weight: 117 pounds Interpreting DESHAUN CHRISTIAN DO BMI: 16.79 kg/m^2 Physician: Date of Service: 03/13/2025 Blood Pressure: 124/66 mmHg Room Number: OP Type of Study: TTE procedure: ECHO COMPLETE (DOPPLER / COLOR) W OR WO CONTRAST. Patient Status: Routine OP Study Location: Echo LabTechnical Quality: Adequate visualization History/Tech Notes: Indication: Cardiac murmur, previously undiagnosed R01.1 Impression: ######################################## Normal sized left ventricle. Normal left ventricular wall thickness. Visually estimated ejection fraction 55% +/- 5%. Normal left ventricular systolic function with normal systolic strain pattern. Normal left ventricular diastolic function. 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 Moderate (2+) mitral regurgitation. PISA ERO: 0.2 cm2 and 0.3 cm2. ######################################## Measurements Summary: LVEDd: 4.42 cm LVESd: 3 cm IVSEd: 0.77 cm AO Root:2.24 cm LVPWd: 0.92 cm Contractility Score Normal Left Ventricular contractility was noted. LV regional wall motion: (0-Not visualized 1-Normal 2-Hypokinesis 3-Akinesis 4-Dyskinesis 5-Aneurysm) Left Ventricle Peak E-wave: 1 m/s Peak A-wave: 0.48 m/s E/A ratio: 2.08 Volume zlizyjkqi37.6 ml LV length: 8.18 cm Volume vwwbnsvu77.89 ml LVOT diameter: 1.86 cm Normal sized left ventricle. Normal left ventricular wall thickness. Visually estimated ejection fraction 55% +/- 5%. Normal left ventricular systolic function with normal systolic strain pattern. Normal left ventricular diastolic function. No left ventricular masses or thrombi. Right Ventricle Diastolic dimension: 3.91 RV systolic pressure: 18.25 mmHg cm Normal sized right ventricle. Normal TAPSE c/w normal right ventricular function Left Atrium LA dimension: 2.9 cm LA volume:52.22 ml LA/Aorta: 1.29 Normal sized left atrium. Normal left atrial volume index 31 ml/m^2. Intact atrial septum. No atrial mass or thrombus. Right Atrium Normal sized right atrium. Intact atrial septum. No atrial mass or thrombus. 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 Moderate (2+) mitral regurgitation. PISA ERO: 0.2 cm2 and 0.3 cm2. No mitral stenosis. No masses or vegetations seen. Aortic Valve Peak velocity: 1.14 m/s LVOT VTI: 16.77 cm Peak gradient: 5.19 mmHg Three cusped aortic valve No aortic regurgitation. No aortic stenosis. No masses or vegetations seen. Tricuspid Valve TR velocity: 1.95 m/s TR gradient: 15.2459 mmHg Estimated RAP: 3 mmHg RVSP: 18.25 mmHg Structurally normal tricuspid valve. Trace to mild tricuspid regurgitation. No tricuspid stenosis. No masses or vegetations seen. Pulmonic Valve Acceleration time: 156.99 msec PASP: 18.25 mmHg Structurally normal pulmonic valve. Trace pulmonic regurgitation. No pulmonic stenosis. No masses or vegetations seen. Great Vessels Aorta Aortic Root: 2.24 cm LVOT Diameter: 1.86 cm Visualized thoracic aorta is normal. Normal aortic root. No evidence of dissection. Normal IVC with appropriate collapse. Pericardium / Pleura No pericardial effusion. Procedure Note Deshaun Christian DO - 03/14/2025 TRANSTHORACIC ECHOCARDIOGRAPHY REPORT Demographics Patient Name: MERCEDES PANG : 2005 LATESHA Age: 19 year(s) Corporate ID Number: [id number] Gender Female Scoop Machine Operator: Manolo Frank, Height: 70 inches [email or web address]] Referring Physician: MARLI HIGGINS Weight: 117 pounds Interpreting DESHAUN CHRISTIAN DO BMI: 16.79 kg/m^2 Physician: Date of Service: 03/13/2025 Blood Pressure: 124/66 mmHg Room Number: OP Type of Study: TTE procedure: ECHO COMPLETE (DOPPLER / COLOR) W OR WO CONTRAST. Patient Status: Routine OP Study Location: Echo LabTechnical Quality: Adequate visualization History/Tech Notes: Indication: Cardiac murmur, previously undiagnosed R01.1 Impression: ######################################## Normal sized left ventricle. Normal left ventricular wall thickness. Visually estimated ejection fraction 55% +/- 5%. Normal left ventricular systolic function with normal systolic strain pattern. Normal left ventricular diastolic function. Myxomatous anterior mitral valve leaflet vs. mild mitral valve prolapseof anterior mitral valve leaflet. Moderate (2+) mitral regurgitation. PISA ERO: 0.2 cm2 and 0.3 cm2. ######################################## Measurements Summary: LVEDd: 4.42 cm LVESd: 3 cm IVSEd: 0.77 cm AO Root:2.24 cm LVPWd: 0.92 cm Contractility Score Normal Left Ventricular contractility was noted. LV regional wall motion: (0-Not visualized 1-Normal 2-Hypokinesis 3-Akinesis 4-Dyskinesis 5-Aneurysm) Left Ventricle Peak E-wave: 1 m/s Peak A-wave: 0.48 m/s E/A ratio: 2.08 Volume .6 ml LV length: 8.18 cm Volume dvrltyhn34.89 ml LVOT diameter: 1.86 cm Normal sized left ventricle. Normal left ventricular wall thickness. Visually estimated ejection fraction 55% +/- 5%. Normal left ventricular systolic function with normal systolic strain pattern. Normal left ventricular diastolic function. No left ventricular masses or thrombi. Right Ventricle Diastolic dimension: 3.91 RV systolic pressure: 18.25 mmHg cm Normal sized right ventricle. Normal TAPSE c/w normal right ventricular function Left Atrium LA dimension: 2.9 cm LA volume:52.22 ml LA/Aorta: 1.29 Normal sized left atrium. Normal left atrial volume index 31 ml/m^2. Intact atrial septum. No atrial mass or thrombus. Right Atrium Normal sized right atrium. Intact atrial septum. No atrial mass or thrombus. 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 mild mitral valve prolapseof anterior mitral valve leaflet. Moderate (2+) mitral regurgitation. PISA ERO: 0.2 cm2 and 0.3 cm2. No mitral stenosis. No masses or vegetations seen. Aortic Valve Peak velocity: 1.14 m/s LVOT VTI: 16.77 cm Peak gradient: 5.19 mmHg Three cusped aortic valve No aortic regurgitation. No aortic stenosis. No masses or vegetations seen. Tricuspid Valve TR velocity: 1.95 m/s TR gradient: 15.2459 mmHg Estimated RAP: 3 mmHg RVSP: 18.25 mmHg Structurally normal tricuspid valve. Trace to mild tricuspid regurgitation. No tricuspid stenosis. No masses or vegetations seen. Pulmonic Valve Acceleration time: 156.99 msec PASP: 18.25 mmHg Structurally normal pulmonic valve. Trace pulmonic regurgitation. No pulmonic stenosis. No masses or vegetations seen. Great Vessels Aorta Aortic Root: 2.24 cm LVOT Diameter: 1.86 cm Visualized thoracic aorta is normal. Normal aortic root. No evidence of dissection. Normal IVC with appropriate collapse. Pericardium / Pleura No pericardial effusion. Jazmin Fernandes DO CV ECHO ORDERABLES Final Result * Vitamin B12 (03/09/2025 8:13 AM EDT) Vitamin B12 771 232 - 1,245 pg/mL [facility] 03/09/2025 8:13 AM EDT 03/09/2025 [facility] - 03/11/2025 8:07 PM EDT Performed at: [address] [place] [id number] Satin Finisher: Tal Nicole PhD, Phone: [phone] [facility] LAB BLOOD ORDERABLES Final Resul t [facility] * Insulin, Fasting (03/09/2025 8:13 AM EDT) Insulin 11.3 2.6 - 24.9 uIU/mL [facility] Blood 03/09/2025 8:13 AM EDT 03/09/2025 Narrative [facility] - 03/11/2025 8:07 PM EDT Performed at: 01 - [address] [id number] Satin Finisher: Tal Nicole PhD, Phone: [phone] [facility] LAB BLOOD ORDERABLES Final Resul t Performing Organization Address [facility] de Phone Number [facility] * Vitamin B1 (Thiamine), Whole Blood, LC/MS/MS (03/09/2025 8:13 AM EDT) Vit. B1, Whole Blood 160.4 66.5 - 200.0 nmol/L [facility] 03/09/2025 8:13 AM EDT 03/09/2025 Narrative [facility] - 03/11/2025 8:07 PM EDT Test(s) 125633-Krj. B1, Whole Blood was developed and its performance characteristics determined by [facility]. It has not been cleared or approved by the Food and Drug Administration. Performed at: [address] [id number] Satin Finisher: Adrián Ugalde MD, Phone: [phone] [facility] LAB BLOOD ORDERABLES Final Resul t Performing Organization Address [facility] de Phone Number [facility] * (ABNORMAL) Vitamin B6, Plasma (03/09/2025 8:13 AM EDT) [facility] Vitamin B6 96.5(H) 3.4 - 65.2 ug/L [facility] Comment: Deficiency: <3.4 Marginal: 3.4 - 5.1 Adequate: >5.1 Blood 03/09/2025 8:13 AM EDT 03/09/2025 Narrative [facility] - 03/11/2025 8:07 PM EDT Test(s) 259938-Aherqeh B6 was developed and its performance characteristics determined by [facility]. It has not been cleared or approved by the Food and Drug Administration. Performed at: [address] [id number] Satin Finisher: Adrián Ugalde MD, Phone: [phone] Nova White DO LAB BLOOD ORDERABLES Final Resul t [facility] * Lactate dehydrogenase (LDH) (03/09/2025 8:13 AM EDT) LDH 190 119 - 226 IU/L [facility] Blood 03/09/2025 8:13 AM EDT 03/09/2025 Narrative [facility] - 03/11/2025 8:07 PM EDT Performed at: [facility] [address] [id number] Satin Finisher: Tal Nicole PhD, Phone: [phone] Nova White DO LAB BLOOD ORDERABLES Final Resul t Performing Organization Address [facility] Co de Phone Number [facility] * Folate, Serum (03/09/2025 8:13 AM EDT) Folate (Folic Acid), Serum 19.6 >3.0 ng/mL [facility] Comment: A serum folate concentration of less than 3.1 ng/mL is considered to represent clinical deficiency. Blood 03/09/2025 8:13 AM EDT 03/09/2025 Narrative [facility] - 03/11/2025 8:07 PM EDT Performed at: [facility] [address] [id number] Satin Finisher: Tal Nicole PhD, Phone: [phone] Nova White DO LAB BLOOD ORDERABLES Final Resul t Performing Organization Address City/[facility]/ZIP Co de Phone Number [facility] from Last 3 Months Insurance [facility] CHO[facility] PL[facility] Care Teams Fashion Intern Relationship Specialty Start Date End Date Ese Pradhan, AIR TUCKER [address] [place] [address] PCP - General Family Medicine 05/04/25
--- OUTSIDE RECORDS SUMMARY | 2025-05-19 11:04 | XMS_ITS | Encounter Summary ---
Author Organization [email or web address] ([place], [place], [place], [place]) Address [address] [place] [address] Care Team Providers Care Manager Statistical Name Role Phone Ese Pradhan APRN Primary Care Provider [phone] [phone] Encounter Details Date Type Department Care Team (Latest Contact Info) Description 05/04/2025 Travel Social History Tobacco Use Types Packs/Day Years [...] EDT Office Visit [facility] Cardiology - [address] [place] [address] Sirena Caldera MD [address] [place] [address] 05/04/2026 9:00 AM EDT Office Visit [facility] [address] [place] [address] Ese Pradhan APRN [address] [place] [address] documented as of this encounter Visit Diagnoses Not on filedocumented in this encounter Care Teams Manager Statistical Relationship Specialty Start Date End Date Ese Pradhan, ACCOUNTING ADVISORY SERVICES MANAGER [address] [place] [address] PCP - General Family Medicine 05/04/25 documented as of this encounter
--- OUTSIDE RECORDS SUMMARY | 2025-05-19 11:04 | XMS_ITS | Clinical Summary ---
Author Organization [employer] ([place], [place], [place], [place]) Address [address] [place] [address] Care Team Providers Care Senior Administrator Support Name Role Phone CarolynnValeriaEse Jamari GAINES Primary Care Provider +1 [phone] Allergies No known active allergies Medications UNKNOWN Vitamin D Digestive enzymes Erwin IGG 2000 Para 1 and Escalante 2 Biotoxin binder Advanced tudca Calming magnesium Activated b complex Hyst pro [place] 3 S.Boulardi . Active clobetasoL (CLOBEX) 0.05 % shampooIndicati [...] uric acid in blood 02/26/2025 Candidiasis 02/26/2025 Encounters Date Type Department Care Team Description 05/14/2025 Abstract [facility] [address] [place] [address] Ese Pradhan, POSTAL SUPERINTENDENT 05/08/2025 Abstract [facility] Care [address] [place] [address] Jazmin Fernandes DO 05/08/2025 Abstract [facility] Care [address] [place] [address] Ese Pradhan, POSTAL SUPERINTENDENT 05/04/2025 10:30 AM EDT Office Visit [facility] [address] [place] [address] Ese Pradhan, POSTAL SUPERINTENDENT Encounter to establish care (Primary Dx); Psoriasis; MVP (mitral valve prolapse) 05/04/2025 8:45 AM EDT Office Visit [facility] Cardiology - [address] [address] Jazmin Fernandes DO Morton, Suzanne M, MD Cardiac murmur, previously undiagnosed (Primary Dx); Nonrheumatic mitral valve regurgitation; Mitral valve prolapse; Palpitations 05/04/2025 Travel 03/31/2025 11:45 AM EDT Video - Telemedicine [facility] Primary [facility] [address] [place] [address] Jazmin Fernandes DO Encounter to discuss test results (Primary Dx); MVP (mitral valve prolapse); Candidiasis; Vitamin C deficiency 03/13/2025 2:20 PM EDT - 03/13/2025 11:59 PM EDT Hospital Encounter [facility] Non-Invasive Cardiology [address] [place] [address] Jazmin Fernandes DO Cardiac murmur, previously undiagnosed Discharge Disposition: Home or Self Care 03/12/2025 Travel 03/03/2025 Abstract [facility] [address] [place] [address] Jazmin Fernandes DO 03/03/2025 Abstract [facility] [address] [place] [address] Jazmin Fernandes DO 03/03/2025 Abstract [facility] [address] [place] [address] Jazmin Fernandse DO 03/03/2025 Abstract [facility] [address] [place] [address] Jazmin Fernandes DO 02/26/2025 9:30 AM EDT Office Visit [facility] [address] [place] [address] Jazmin Fernandes, Encounter to establish care (Primary Dx); Psoriasis; Scalp psoriasis; Cardiac murmur, previously undiagnosed; Vitamin B deficiency; Underweight (BMI < 18.5); Elevated uric acid in blood; Ketosis (HCC); Candidiasis; Vitamin C deficiency 02/26/2025 Travel from Last 3 Months Family History Medical History Relation Name Comments No Known Problem Father Dementia Maternal Grandmother Radha Mcguire Heart disease Maternal Grandmother Radha Mcguire No Known Problem Mother Relation Name Status Comments Father Alive Maternal Grandfather Alive Maternal Grandmother Radha Mcguire Alive Mother Alive Social History Tobacco Use Types Packs/Day Years [...] Description 11/02/2025 8:30 AM EDT Office Visit [facility] Cardiology - [address] [place] [address] Sirena Caldera MD [address] [place] [address] 05/04/2026 9:00 AM EDT Office Visit [facility] [address] [place] [address] Ese Pradhan APRN [address] [place] [address] Health Maintenance Due Date Last Done Comments Depression Screening (12+) 2016 HIV Screening 11/18/2019 Meningococcal B Vaccine (1 of 2 - Standard) 2020 Hepatitis C Screening 2022 DTAP/TDAP/TD VACCINES (1 - Tdap) 11/18/2023 Pneumococcal Vaccine: 0-49 Years (1 of 2 - PCV) 2023 COVID-19 VACCINE (1 - 2023- season) 2025 Influenza Vaccine (#1) 2025 Tobacco Cessation Counseling and Screening (12+) 05/0405/04/2025 Procedures Procedure Name Priority Date/Time Associated Diagnosis [...] LATESHA Age: 19 year(s) Corporate ID Number: [id number] Gender Female Applied Biology Professor: Manolo Frank, Height: 70 inches [facility] Referring Physician: MARLI HIGGINS Weight: 117 pounds [...] A-wave: 0.48 m/s E/A ratio: 2.08 Volume rxjaxtnva30.6 ml LV length: 8.18 cm Volume uwyklikf45.89 ml LVOT diameter: 1.86 cm Normal sized [...] LATESHA Age: 19 year(s) Corporate ID Number: [id number] Gender Female Applied Biology Professor: Manolo Frank, Height: 70 inches [facility] [place] Referring Physician: MARLI HIGGINS Weight: 117 pounds [...] A-wave: 0.48 m/s E/A ratio: 2.08 Volume ztdrwvuks71.6 ml LV length: 8.18 cm Volume lcpzfipi51.89 ml LVOT diameter: 1.86 cm Normal sized [...] collapse. Pericardium / Pleura No pericardial effusion. us Jazmin Fernandes DO CV ECHO ORDERABLES Final Result * Vitamin B12 (03/09/2025 8:13 AM EDT) Pathologist [facility] Vitamin B12 771 232 - 1,245 pg/mL [facility] 03/09/2025 8:13 AM EDT 03/09/2025 Narrative [facility] - 03/11/2025 8:07 PM EDT Performed at: [address] [id number] Apron Cleaner: Tal Nicole PhD, Phone: [phone] Nova White DO LAB BLOOD ORDERABLES Final Resul t Performing Organization Address City/[facility] Co de Phone Number [facility] * Insulin, Fasting (03/09/2025 8:13 AM EDT) Pathologist [facility] Insulin 11.3 2.6 - 24.9 uIU/mL [facility] Blood 03/09/2025 8:13 AM EDT 03/09/2025 Narrative [facility] - 03/11/2025 8:07 PM EDT Performed at: [address] [id number] Apron Cleaner: Tal Nicole PhD, Phone: [phone] [facility] White LAB BLOOD ORDERABLES Final Resul t Performing Organization Address [facility] de Phone Number [facility] * Vitamin B1 (Thiamine), Whole Blood, LC/MS/MS (03/09/2025 8:13 AM EDT) Pathologist [facility] Vit. B1, Whole Blood 160.4 66.5 - 200.0 nmol/L [facility] 03/09/2025 8:13 AM EDT 03/09/2025 Narrative [facility] - 03/11/2025 8:07 PM EDT Test(s) 422730-Mlg. B1, Whole Blood was developed and its performance characteristics determined by [facility]. It has not been cleared or approved by the Food and Drug Administration. Performed at: - [address] [id number] Apron Cleaner: Adrián Ugalde MD, Phone: [phone] Nova White DO LAB BLOOD ORDERABLES Final Resul t Performing Organization Address City/[facility] Co de Phone Number [facility] * (ABNORMAL) Vitamin B6, Plasma (03/09/2025 8:13 AM EDT) Pathologist [facility] Vitamin B6 96.5(H) 3.4 - 65.2 ug/L [facility] Comment: Deficiency: <3.4 Marginal: 3.4 - 5.1 Adequate: >5.1 Blood 03/09/2025 8:13 AM EDT 03/09/2025 Narrative [facility] - 03/11/2025 8:07 PM EDT Test(s) 333279-Ysdrugq B6 was developed and its performance characteristics determined by [facility]. It has not been cleared or approved by the Food and Drug Administration. Performed at: - [address] [id number] Apron Cleaner: Adrián Ugalde MD, Phone: [phone] Nova White DO LAB BLOOD ORDERABLES Final Resul t Performing Organization Address City/[facility]/ZIP Co de Phone Number [facility] * Lactate dehydrogenase (LDH) (03/09/2025 8:13 AM EDT) [facility] LDH 190 119 - 226 IU/L [facility] Blood 03/09/2025 8:13 AM EDT 03/09/2025 Narrative [facility] - 03/11/2025 8:07 PM EDT Performed at: - [address] [id number] Apron Cleaner: Tal Nicole PhD, Phone: [phone] Nova White DO LAB BLOOD ORDERABLES Final Resul t [facility] * Folate, Serum (03/09/2025 8:13 AM EDT) Pathologist [facility] Folate (Folic Acid), Serum 19.6 >3.0 ng/mL [facility] Comment: A serum folate concentration of less than 3.1 ng/mL is considered to represent clinical deficiency. Blood 03/09/2025 8:13 AM EDT 03/09/2025 Narrative [facility] - 03/11/2025 8:07 PM EDT Performed at: - [facility] [address] [id number] Apron Cleaner: Tal Nicole PhD, Phone: [phone] us Nova White DO LAB BLOOD ORDERABLES Final Resul t [facility] from Last 3 Months Insurance [facility] CHOICE PLUS Care Teams Senior Administrator Support Relationship Specialty Start Date End Date Ese Pradhan, POSTAL SUPERINTENDENT [address] [place] [id number] PCP - General Family Medicine 05/04/25
[2025-05-19 11:10] VITALS: O2SAT 100
[2025-05-19 11:15] LABS: Albumin Level 4.8 g/dl (3.5-5.0); Chloride 103 mmol/L (98-107); Potassium 3.9 mmoL/L (3.5-5.1); Sodium 138 mmol/L (136-145)
[2025-05-19 11:18] LABS: Alanine Aminotransferase 31 U/L (12-78); Albumin/Globulin Ratio 1.7 (1.1-1.8); Alkaline Phosphatase 59 U/L (38-126); Anion Gap 13.9 mEq/L (5-15); Aspartate Amino Transferase 41 U/L (14-36); Bilirubin,Total 0.6 mg/dl (0.2-1.3); Blood Urea Nitrogen 14 mg/dl (7-17); Calcium 9.3 mg/dl (8.4-10.2); Carbon Dioxide 25 mmol/L (22.0-30.0); Creatinine Clearance Estimated 110 mL/min (50-200); Creatinine,Serum 0.70 mg/dl (0.52-1.04); Estimated Glomerular Filt Rate 107 ml/min (>60); GFR (African American) 129 ML/MIN (>60); Globulin 2.9 g/dL (1.3-3.2); Glucose 110 mg/dl (74-100); Total Protein,Serum 7.7 g/dl (6.3-8.2)
[2025-05-19 11:44] LABS: Troponin I < 0.01 ng/ml (0.00-0.034)
[2025-05-19 11:56] VITALS: BP 101/62; PULSE 82; RESP 18; TEMP 36.6; O2SAT 100
[2025-05-19 12:29] LABS: Hepatitis C Ab Qual. W/ RFX NEGATIVE (Negative)
== END 2025-05-19 11:56 | disposition home or self-care (01) ==
PROVIDERS: Physician Assistant; Emergency Provider Student in an Organized Health Care Education/Training Program
DX: R55 Syncope and collapse (principal)
CPT/HCPCS: 80053; 83605; 84484; 85025; 86803; 87389; 93005; 99283; 99284

== ENCOUNTER 2025-06-09 10:29 | Outpatient (CLI) | payer OTHER, SELFPAY ==
--- OUTSIDE RECORDS SUMMARY | 2025-05-04 08:45 | XMS_ITS | Encounter Summary ---
Author Organization [employer] ([place], [place], [place], [place]) Address [address] [place] [address] Care Team Providers Care Pre Owned Sales Consultant Name Role Phone Ese Pradhan APRN Primary Care Provider [phone] Reason for Visit * Reason Comments Establish Care Pt referred for MVP Pt states intermittent palpsDenies CP/SOA * Consultation (Routine) - Closed Specialty Diagnoses / Procedures Referred By Contac t Referred To Contact Cardiology Diagnoses MVP (mitral valve prolapse) Jazmin Fernandes DO [address] [place] [address] Phone: tel: fax: [facility]iology [address] [address] Phone: tel: fax: Referral ID Status Reason Start Date Expiration Date V isits Requested Visits Authorized [id number] Closed Specialty Services Required 03/31/2025 03/31/2026 1 1 Encounter Details Date Type Department Care Team (Late st Contact Info) Description 05/04/2025 8:45 AM EDT Office Visit [facility] Cardiology [address] [address] Jazmin Fernandes DO [address] [place] [address] Sirena Caldera MD [address] [facility] [address] [place] [address] Cardiac murmur, previously undiagnosed (Primary Dx); Nonrheumatic [...] through Care Everywhere. * Mitral Valve Regurgitation (Georgian) documented in this encounter Progress Notes * Sirena Caldera MD - 05/04/2025 8:45 AM EDT Subjective: Kelley Odell is a 19 y.o. female. Chief Complaint Patient presents with [facility] Pt referred for MVP Pt states [...] Description 11/02/2025 8:30 AM EDT Office Visit [facility] Cardiology - [facility] [address] [place] [address] Sirena Caldera MD [address] [facility] [address] [place] [address] 05/04/2026 9:00 AM EDT Office Visit [facility] Primary Care [address] [place] [address] Ese Pradhan APRN [address] [place] [address] documented as of this encounter [...] Palpitations documented in this encounter Care Teams Pre Owned Sales Consultant Relationship Specialty Start Date End Date Ese Pradhan APRN [address] [place] [address] PCP - General Family Medicine 05/04/25 documented as of this encounter
--- OUTSIDE RECORDS SUMMARY | 2025-05-04 10:30 | XMS_ITS | Encounter Summary ---
Author Organization [employer] ([place], [place], [place], [place]) Address [address] [place] [address] Care Team Providers Care Front End Developer Designer Name Role Phone Ese Pradhan APRN Primary Care Provider [phone] Reason for Referral * Consultation (Routine) - Authorized Specialty Diagnoses / Procedures Referred By Valentin jacome Referred To Contact Dermatology Diagnoses Psoriasis Ese Pradhan APRN [address] [place] [address] Phone: tel: fax: Referral ID Status Reason Start Date Expiration Date Visits Requested Visits Authorized [id number] Authorized Specialty Services Required 05/04/2025 05/04/2026 1 1 Reason for Visit * Reason Comments Establish Care Establish care Encounter Details Date Type Department Care Team (Late st Contact Info) Description 05/04/2025 10:30 AM EDT Office Visit [facility] [address] [place] [address] Ese Pradhan APRN [address] [place] [address] Encounter to establish care (Primary Dx); [...] this encounter Patient Instructions * Patient Instructions* sEe Pradhan APRN - 05/04/2025 10:30 AM EDT [facility] Address: [address] [place] [address] documented in this encounter Progress Notes * [...] of Dr. Fernandes Previously working with health family coach for prevention of psoriasis, did a mold detox, liver cleanse, and parasite cleanse. States this did not help with her psoriasis. States the cream helps her, but as soon as she stops cream, spots come back. These are on her face,and over the rest of her body. Previously visited the application penetration tester and was also given a cream, would [...] Description 11/02/2025 8:30 AM EDT Office Visit [facility] Cardiology - [address] [place] [address] Sirena Caldera MD [address] [place] [address] 05/04/2026 9:00 AM EDT Office Visit [facility] [address] [place] [address] Ese Pradhan APRN [address] [id number] Scheduled Referrals Name Type Priority Associated Diagnoses Order Schedule Ambulatory referral to Dermatology Outpatient Referral Routine Psoriasis Expected: 05/04/2025, Expires: 08/02/2025 documented as of this encounter Visit Diagnoses Diagnosis Encounter to establish care- Primary Psoriasis Other psoriasis MVP (mitral valve prolapse) Mitral valve disorders documented in this encounter Care Teams Front End Developer Designer Relationship Specialty Start Date End Date Ese Pradhan APRN [address] [place] [id number] PCP - General Family Medicine 05/04/25 documented as of this encounter
--- NOTE | 2025-06-09 10:30 | XR_ITS ---
FINAL REPORT CLINICAL HISTORY: right wrist fx COMPARISON: 05/18/2025 FINDINGS: AP, oblique, and lateral views of the right wrist were obtained. Plaster cast has been removed. There has been interval healing of the distal radial fracture. No new osseous abnormality identified. The joint spaces are preserved. The soft tissues are normal. IMPRESSION: Interval healing distal radial fracture. Reviewed, Interpreted and Dictated by Casie Herrera MD Transcribed by Moon Carey Authenticated and [facility]
--- OUTSIDE RECORDS SUMMARY | 2025-06-09 10:31 | XMS_ITS | Encounter Summary ---
Author Organization [employer] ([place], [place], [place], [place]) Address [address] [place] [address] Care Team Providers Care Head Of Drama Name Role Phone CarolynnEse leonardo Jamari GAINES Primary Care Provider +1 [phone] Encounter Details Date Type Department Care Team (Late st Contact Info) Description 05/08/2025 Abstract [facility] Primary Care [address] [place] [address] Jazmin Fernandes DO [address] [place] [address] Social History Tobacco Use Types [...] Description 11/02/2025 8:30 AM EDT Office Visit [facility] Cardiology - [address] [place] [address] Sirena Caldera MD [address] [place], [place] [id number] 05/04/2026 9:00 AM EDT Office Visit [facility] Primary Care [address] [place] [address] Ese Pradhan APRN [address] [place] [address] documented as of this encounter Visit Diagnoses Not on filedocumented in this encounter Care Teams Head Of Drama Relationship Specialty Start Date End Date Ese Pradhan APRN [address] [place] [address] PCP - General Family Medicine 05/04/25 documented as of this encounter
--- OUTSIDE RECORDS SUMMARY | 2025-06-09 10:31 | XMS_ITS | Clinical Summary ---
Author Organization [employer] ([place], [place], [place], [place]) Address [address] [place] [address] Care Team Providers Care Termite Inspector Name Role Phone CarolynnValeriaEse Jamari GAINES Primary Care Provider +1 -[phone] Allergies No known active allergies Medications UNKNOWN Vitamin D Digestive enzymes Erwin IGG 2000 Para 1 and Escalante 2 Biotoxin binder Advanced tudca Calming magnesium Activated b complex Hyst pro [place] 3 S.Boulardi . Active clobetasoL (CLOBEX) 0.05 [...] Encounters Date Type Department Care Team Description 05/27/2025 Abstract [facility] Primary Care [address] [place] [address] Ese Pradhan, HIGH SCHOOL LEARNING SUPPORT TEACHER 05/27/2025 Abstract [facility] Primary Care [address] [place] [address] Ese Pradhan, HIGH SCHOOL LEARNING SUPPORT TEACHER 05/19/2025 Abstract [facility] Primary Care [address] [place] [address] Ese Pradhan, HIGH SCHOOL LEARNING SUPPORT TEACHER 05/14/2025 Abstract [facility] Primary Care [address] [place] [address] Ese Pradhan, HIGH SCHOOL LEARNING SUPPORT TEACHER 05/08/2025 Abstract [facility] Primary Care [address] [place] [address] Jazmin Fernandes DO 05/08/2025 Abstract [facility] Primary [facility] [address] [place] [address] Ese Pradhan, HIGH SCHOOL LEARNING SUPPORT TEACHER 05/04/2025 10:30 AM EDT Office Visit [facility] [address] [place] [address] Ese Pradhan, HIGH SCHOOL LEARNING SUPPORT TEACHER Encounter to establish care (Primary Dx); Psoriasis; MVP (mitral valve prolapse) 05/04/2025 8:45 AM EDT Office Visit [facility] Cardiology - [facility] [address] [place] [address] Jazmin Fernandes DO Morton, Suzanne M, MD Cardiac murmur, previously undiagnosed (Primary Dx); Nonrheumatic mitral valve regurgitation; Mitral valve prolapse; Palpitations 05/04/2025 Travel 03/31/2025 11:45 AM EDT Video - Telemedicine [facility] Primary [facility] [address] [place] [address] Jazmin Fernandes DO Encounter to discuss test results (Primary Dx); MVP (mitral valve prolapse); Candidiasis; Vitamin C deficiency 03/13/2025 2:20 PM EDT - 03/13/2025 11:59 PM EDT Hospital Encounter [facility] Non-Invasive Cardiology [address] [place] [address] Jazmin Fernandes DO Cardiac murmur, previously undiagnosed Discharge Disposition: Home or Self Care 03/12/2025 Travel from Last 3 Months Family History [...] Description 11/02/2025 8:30 AM EDT Office Visit [facility] Cardiology - [address] [place] [address] Sirena Caldera MD [address] [facility] [address] [place] [address] 05/04/2026 9:00 AM EDT Office Visit [facility] Primary Care [address] [place] [address] Ese Pradhan, HIGH SCHOOL LEARNING SUPPORT TEACHER [address] [place] [address] Health Maintenance Due Date Last Done Comments Depression Screening (12+) 2016 HIV Screening 11/18/2019 Meningococcal B Vaccine (1 of 2 - Standard) 2020 Hepatitis C Screening 2022 DTAP/TDAP/TD VACCINES (1 - Tdap) 11/18/2023 Pneumococcal Vaccine: 0-49 Years (1 of 2 - PCV) 2023 COVID-19 VACCINE (1 - season) 2025 Influenza Vaccine (#1) 2025 Tobacco [...] LATESHA Age: 19 year(s) Corporate ID Number: [id number] Gender Female Bilingual Spanish Inbound Sales: Manolo Frank, Height: 70 inches [facility] Referring Physician: MARLI HIGGINS Weight: 117 pounds [...] A-wave: 0.48 m/s E/A ratio: 2.08 Volume wrdqgdjyr69.6 ml LV length: 8.18 cm Volume sjlahsvp53.89 ml LVOT diameter: 1.86 cm Normal sized [...] Demographics Patient Name: MERCEDES PANG : 2005 [address] Age: 19 year(s) Corporate ID Number: [id number] Gender Female Bilingual Spanish Inbound Sales: Manolo Frank, Height: 70 inches [facility] Referring Physician: MARLI HIGGINS Weight: 117 pounds [...] A-wave: 0.48 m/s E/A ratio: 2.08 Volume kotwlwrpg15.6 ml LV length: 8.18 cm Volume .89 ml LVOT diameter: 1.86 cm Normal sized [...] * Vitamin B12 (03/09/2025 8:13 AM EDT) [facility] Vitamin B12 771 232 - 1,245 pg/mL [facility] 03/09/2025 8:13 AM EDT 03/09/2025 Narrative [facility] - 03/11/2025 8:07 PM EDT Performed at: 01 - [address] [id number] Theatre Manager: Tal Nicole PhD, Phone: [phone] Jazmin Fernandes DO LAB BLOOD ORDERABLES Final Resul t [facility] * Insulin, Fasting (03/09/2025 8:13 AM EDT) [facility] Insulin 11.3 2.6 - 24.9 uIU/mL [facility] Blood 03/09/2025 8:13 AM EDT 03/09/2025 Narrative [facility] - 03/11/2025 8:07 PM EDT Performed at: - [address] [id number] Theatre Manager: Tal Nicole PhD, Phone: [phone] [facility] LAB BLOOD ORDERABLES Final Resul t Performing Organization Address [facility] de Phone Number [facility] * Vitamin B1 (Thiamine), Whole Blood, LC/MS/MS (03/09/2025 8:13 AM EDT) [facility] Vit. B1, Whole Blood 160.4 66.5 - 200.0 nmol/L [facility] 03/09/2025 8:13 AM EDT 03/09/2025 [facility] - 03/11/2025 8:07 PM EDT Test(s) [id number]-Jtd. B1, Whole Blood was developed and its performance characteristics determined by [facility]. It has not been cleared or approved by the Food and Drug Administration. Performed at: [address] [id number] Theatre Manager: Adrián Ugalde MD, Phone: [phone] [facility] LAB BLOOD ORDERABLES Final Resul t Performing Organization Address [facility] Co de Phone Number [facility] * (ABNORMAL) Vitamin B6, Plasma (03/09/2025 8:13 AM EDT) [facility] Vitamin B6 96.5(H) 3.4 - 65.2 ug/L [facility] Comment: Deficiency: <3.4 Marginal: 3.4 - 5.1 Adequate: >5.1 Blood 03/09/2025 8:13 AM EDT 03/09/2025 [facility]ative [facility] - 03/11/2025 8:07 PM EDT Test(s) [id number]-Xdecdeq B6 was developed and its performance characteristics determined by [facility]. It has not been cleared or approved by the Food and Drug Administration. Performed at: [address] [id number] Theatre Manager: Adrián Ugalde MD, Phone: [phone] Nova White DO LAB BLOOD ORDERABLES Final Resul t Performing Organization Address [facility] Co de Phone Number [facility] * Lactate dehydrogenase (LDH) (03/09/2025 8:13 AM EDT) LDH 190 119 - 226 IU/L [facility] Blood 03/09/2025 8:13 AM EDT 03/09/2025 Narrative [facility] - 03/11/2025 8:07 PM EDT Performed at: [address] [id number] Theatre Manager: Tal Nicole PhD, Phone: [phone] [facility] DO LAB BLOOD ORDERABLES Final Resul t Performing Organization Address [facility] de Phone Number [facility] * Folate, Serum (03/09/2025 8:13 AM EDT) Folate (Folic Acid), Serum 19.6 >3.0 ng/mL [facility] Comment: A serum folate concentration of less than 3.1 ng/mL is considered to represent clinical deficiency. Blood 03/09/2025 8:13 AM EDT 03/09/2025 Narrative [facility] - 03/11/2025 8:07 PM EDT Performed at: [address] [id number] Theatre Manager: Tal Nicole PhD, Phone: [phone] Nova White DO LAB BLOOD ORDERABLES Final Resul t Performing Organization Address [facility] de Phone Number [facility] from Last 3 Months Insurance [facility] CHOICE PLUS Care Teams Termite Inspector Relationship Specialty Start Date End Date Ese Pradhan, HIGH SCHOOL LEARNING SUPPORT TEACHER [address] [place] [address] PCP - General Family Medicine 05/04/25
--- OUTSIDE RECORDS SUMMARY | 2025-06-09 10:31 | XMS_ITS | Encounter Summary ---
Author Organization [employer] ([place], [place], [place], [place]) Address [address] [place] [address] Care Team Providers Care Rackman Name Role Phone Ese Pradhan APRN Primary Care Provider +1 [phone] Encounter Details Date Type Department Care Team (Late st Contact Info) Description 05/08/2025 Abstract [facility] Primary Care [address] [place] [address] Ese Pradhan APRN [address] [place] [address] Social History Tobacco Use Types [...] Description 11/02/2025 8:30 AM EDT Office Visit [facility] Cardiology - [address] [place] [address] Sirena Caldera MD [address] [place], [place] [id number] 05/04/2026 9:00 AM EDT Office Visit [facility] Primary Care [address] [place] [address] Ese Pradhan, FELT TIPPING MACHINE TENDER [address] [place] [address] documented as of this encounter Visit Diagnoses Not on filedocumented in this encounter Care Teams Rackman Relationship Specialty Start Date End Date Ese Pradhan, FELT TIPPING MACHINE TENDER [address] [place] [address] PCP - General Family Medicine 05/04/25 documented as of this encounter
--- OUTSIDE RECORDS SUMMARY | 2025-06-09 10:31 | XMS_ITS | Referral Summary ---
Author Organization [employer] ([place], [place], [place], [place]) Address [address] [place] [address] Care Team Providers Care Customer Service Receptionist Name Role Phone Ese Pradhan POSTAL SERVICE WINDOW CLERK Primary Care Provider +1 [phone] Encounters Date Type Department Care Team Description 05/27/2025 Abstract [facility] Primary Care [address] [place] [address] Ese Pradhan, POSTAL SERVICE WINDOW CLERK 05/27/2025 Abstract [facility] Primary Care [address] [place] [address] Ese Pradhan, POSTAL SERVICE WINDOW CLERK 05/19/2025 Abstract [facility] Primary Care [address] [place] [address] Ese Pradhan, POSTAL SERVICE WINDOW CLERK 05/14/2025 Abstract [facility] Primary Care [address] [place] [address] Ese Pradhan, POSTAL SERVICE WINDOW CLERK 05/08/2025 Abstract [facility] Primary Care [address] [place] [address] Jazmin Fernandes DO 05/08/2025 Abstract [facility] Primary Care [address] [place] [address] Ese Pradhan, POSTAL SERVICE WINDOW CLERK 05/04/2025 10:30 AM EDT Office Visit [facility] Primary Care [address] [place] [address] Ese Pradhan APRN Encounter to establish care (Primary Dx); Psoriasis; MVP (mitral valve prolapse) 05/04/2025 Travel 05/04/2025 8:45 AM EDT Office Visit [facility] Cardiology - [address] [place] [address] Jazmin Fernandes DO Morton, Suzanne M, MD Cardiac murmur, previously undiagnosed (Primary Dx); Nonrheumatic mitral valve regurgitation; Mitral valve prolapse; Palpitations 03/31/2025 11:45 AM EDT Video - Telemedicine [facility] Primary Care [address] [place] [address] Jazmin Fernandes DO Encounter to discuss test results (Primary Dx); MVP (mitral valve prolapse); Candidiasis; Vitamin C deficiency 03/13/2025 2:20 PM EDT - 03/13/2025 11:59 PM EDT Hospital Encounter [facility] Non-Invasive Cardiology [address] [place] [address] Jazmin Fernandes DO Cardiac murmur, previously undiagnosed Discharge Disposition: Home or Self Care 03/12/2025 Travel from Last 3 Months Allergies No known active allergies Medications UNKNOWN Vitamin D Digestive enzymes Erwin IGG 2000 Para 1 and Escalante 2 Biotoxin binder Advanced tudca Calming magnesium Activated b complex Hyst pro [place] 3 S.Boulardi . Active clobetasoL (CLOBEX) 0.05 [...] Description 11/02/2025 8:30 AM EDT Office Visit [facility] Cardiology - [address] [place] [address] Sirena Caldera MD [address] [place] [address] 05/04/2026 9:00 AM EDT Office Visit [facility] Primary Care [address] [place] [address] Ese Pradhan, POSTAL SERVICE WINDOW CLERK [address] [place] [address] Procedures Procedure Name Priority Date/Time Associated Diagnosis [...] Demographics Patient Name: MERCEDES PANG : 2005 MARINA Age: 19 year(s) Corporate ID Number: [id number] Gender Female Sack Sorter: Manolo Frank, Height: 70 inches [facility] Referring Physician: MARLI HIGGINS Weight: 117 pounds [...] A-wave: 0.48 m/s E/A ratio: 2.08 Volume pcnzfavjt44.6 ml LV length: 8.18 cm Volume .89 [...] Pericardium / Pleura No pericardial effusion. Procedure Deshaun Whitmore, DO - 03/14/2025 TRANSTHORACIC ECHOCARDIOGRAPHY REPORT Demographics Patient Name: MERCEDES PANG : 2005 MARINA Age: 19 year(s) Corporate ID Number: [id number] Gender Female Sack Sorter: Manolo Frank, Height: 70 inches [facility] Referring Physician: MARLI HIGGINS Weight: 117 pounds [...] A-wave: 0.48 m/s E/A ratio: 2.08 Volume qqkyxknvk52.6 ml LV length: 8.18 cm Volume jfuadtio14.89 ml LVOT diameter: 1.86 cm Normal sized [...] collapse. Pericardium / Pleura No pericardial effusion. [facility] CV ECHO ORDERABLES Final Result * Vitamin B12 (03/09/2025 8:13 AM EDT) [facility] Vitamin B12 771 232 - 1,245 pg/mL [facility] 03/09/2025 8:13 AM EDT 03/09/2025 [facility] - 03/11/2025 8:07 PM EDT Performed at: [address] [place] [id number] Naval Engineer: Tal Nicole PhD, Phone: [phone] [facility] LAB BLOOD ORDERABLES Final Resul t Performing Organization Address City/[facility] de Phone Number [facility] * Insulin, Fasting (03/09/2025 8:13 AM EDT) [facility] Insulin 11.3 2.6 - 24.9 uIU/mL [facility] Blood 03/09/2025 8:13 AM EDT 03/09/2025 [facility] - 03/11/2025 8:07 PM EDT Performed at: [address] [place] [id number] Naval Engineer: Tal Nicole PhD, Phone: [phone] [facility] LAB BLOOD ORDERABLES Final Resul t Performing Organization Address City/[facility] Co de Phone Number [facility] * Vitamin B1 (Thiamine), Whole Blood, LC/MS/MS (03/09/2025 8:13 AM EDT) [facility] Vit. B1, Whole Blood 160.4 66.5 - 200.0 nmol/L [facility] 03/09/2025 8:13 AM EDT 03/09/2025 Narrative [facility] - 03/11/2025 8:07 PM EDT Test(s) 877910-Zlr. B1, Whole Blood was developed and its performance characteristics determined by [facility]. It has not been cleared or approved by the Food and Drug Administration. Performed at: - [facility] [id number] Naval Engineer: Adrián Ugalde MD, Phone: [phone] [facility] LAB BLOOD ORDERABLES Final Resul t Performing Organization Address [facility] de Phone Number [facility] * (ABNORMAL) Vitamin B6, Plasma (03/09/2025 8:13 AM EDT) Vitamin B6 96.5(H) 3.4 - 65.2 ug/L [facility] Comment: Deficiency: <3.4 Marginal: 3.4 - 5.1 Adequate: >5.1 Blood 03/09/2025 8:13 AM EDT 03/09/2025 Narrative [facility] - 03/11/2025 8:07 PM EDT Test(s) [id number]-[id number] B6 was developed and its performance characteristics determined by [facility]. It has not been cleared or approved by the Food and Drug Administration. Performed at: - [facility] [id number] Naval Engineer: Adrián Ugalde MD, Phone: [phone] [facility] LAB BLOOD ORDERABLES Final Resul t Performing Organization Address [facility] Co de Phone Number [facility] * Lactate dehydrogenase (LDH) (03/09/2025 8:13 AM EDT) LDH 190 119 - 226 IU/L [facility] Blood 03/09/2025 8:13 AM EDT 03/09/2025 Narrative [facility] - 03/11/2025 8:07 PM EDT Performed at: 01 - [facility] [id number] Naval Engineer: Tal Nicole PhD, Phone: [phone] [employer] [facility] DO LAB BLOOD ORDERABLES Final Resul t Performing Organization Address City/[facility] Co de Phone Number [facility] * Folate, Serum (03/09/2025 8:13 AM EDT) [facility] Folate (Folic Acid), Serum 19.6 >3.0 ng/mL [facility] Comment: A serum folate concentration of less than 3.1 ng/mL is considered to represent clinical deficiency. Blood 03/09/2025 8:13 AM EDT 03/09/2025 Narrative [facility] - 03/11/2025 8:07 PM EDT Performed at: [facility] [id number] Naval Engineer: Tal Nicole PhD, Phone: [phone] [facility] LAB BLOOD ORDERABLES Final Resul t Performing Organization Address City/[facility] Co de Phone Number [facility] from Last 3 Months Insurance [facility] CHOICE PLUS Care Teams Customer Service Receptionist Relationship Specialty Start Date End Date Ese Pradhan APRN [address] [place] [address] PCP - General Family Medicine 05/04/25
--- OUTSIDE RECORDS SUMMARY | 2025-06-09 10:31 | XMS_ITS | Encounter Summary ---
Author Organization [employer] ([place], [place], [place], [place]) Address [address] [place] [address] Care Team Providers Care Environmental Services Project Manager Name Role Phone Ese Pradhan APRN Primary Care Provider [phone] Encounter Details Date Type Department Care Team [...] Description 11/02/2025 8:30 AM EDT Office Visit [facility] Cardiology - [address] [place] [address] Sirena Caldera MD [address] [place] [address] 05/04/2026 9:00 AM EDT Office Visit [facility] Primary Care [address] [place] [address] Ese Pradhan APRN [address] [place] [address] documented as of this encounter Visit Diagnoses Not on filedocumented in this encounter Care Teams Environmental Services Project Manager Relationship Specialty Start Date End Date Ese Pradhan, SIDING MECHANIC [address] [place] [address] PCP - General Family Medicine 05/04/25 documented as of this encounter
--- OUTSIDE RECORDS SUMMARY | 2025-06-09 10:31 | XMS_ITS | Encounter Summary ---
Author Organization [email or web address] ([place], [place], [place], [place]) Address [address] [place] [address] Care Team Providers Care Print Shop Chief Clerk Name Role Phone Ese Pradhan APRN Primary Care Provider [phone] [phone] Encounter Details Date Type Department Care Team (Late st Contact Info) Description 05/14/2025 Abstract [facility] Primary Care [address] [place] [address] Ese Pradhan APRN [address] [place] [address] Social History Tobacco Use Types [...] Description 11/02/2025 8:30 AM EDT Office Visit [facility] Cardiology - [address] [place] [address] Sirena Caldera MD [address] [place], [place] [address] 05/04/2026 9:00 AM EDT Office Visit [facility] Primary Care [address] [place] [address] Ese Pradhan, SAT MATH TUTOR [address] [place] [address] documented as of this encounter Visit Diagnoses Not on filedocumented in this encounter Care Teams Print Shop Chief Clerk Relationship Specialty Start Date End Date Ese Pradhan, SAT MATH TUTOR [address] [place] [address] PCP - General Family Medicine 05/04/25 documented as of this encounter
--- OUTSIDE RECORDS SUMMARY | 2025-06-09 10:32 | XMS_ITS | Encounter Summary ---
Author Organization [email or web address] ([place], [place], [place], [place]) Address [address] [place] [address] Care Team Providers Care Lean Six Sigma Black Belt Name Role Phone Ese Pradhan APRN Primary Care Provider [phone] -[phone] Encounter Details Date Type Department Care Team (Late st Contact Info) Description 05/19/2025 Abstract [facility] Primary Care [address] [place] [address] Ese Pradhan APRN [address] [place] [address] Social History Tobacco Use Types [...] Description 11/02/2025 8:30 AM EDT Office Visit [facility] Cardiology - [address] [place] [address] Sirena Caldera MD [address] [place], [place] [id number] 05/04/2026 9:00 AM EDT Office Visit [facility] Primary Care [address] [place] [address] Ese Pradhan, TRANSIT AUTHORITY POLICE OFFICER [address] [place] [address] documented as of this encounter Visit Diagnoses Not on filedocumented in this encounter Care Teams Lean Six Sigma Black Belt Relationship Specialty Start Date End Date Ese Pradhan, TRANSIT AUTHORITY POLICE OFFICER [address] [place] [address] PCP - General Family Medicine 05/04/25 documented as of this encounter
--- OUTSIDE RECORDS SUMMARY | 2025-06-09 10:32 | XMS_ITS | Encounter Summary ---
Author Organization [employer] ([place], [place], [place], [place]) Address [address] [place] [address] Care Team Providers Care Residential Sales Executive Name Role Phone Ese Pradhan APRN Primary Care Provider [phone] [phone] Encounter Details Date Type Department Care Team (Late st Contact Info) Description 05/27/2025 Abstract [facility] Primary Care [address] [place] [address] Ese Pradhan APRN [address] [place] [address] Social History Tobacco Use Types [...] Description 11/02/2025 8:30 AM EDT Office Visit [facility] Cardiology - [address] [place] [address] Sirena Caldera MD [address] [place], [place] [address] 05/04/2026 9:00 AM EDT Office Visit [facility] Primary Care [address] [place] [address] Ese Pradhan, BOILER SETTER [address] [place] [address] documented as of this encounter Visit Diagnoses Not on filedocumented in this encounter Care Teams Residential Sales Executive Relationship Specialty Start Date End Date Ese Pradhan, BOILER SETTER [address] [place] [address] PCP - General Family Medicine 05/04/25 documented as of this encounter
--- OUTSIDE RECORDS SUMMARY | 2025-06-09 10:32 | XMS_ITS | Encounter Summary ---
Author Organization [employer] ([place], [place], [place], [place]) Address [address] [place] [address] Care Team Providers Care Supervisor Clam Bed Name Role Phone Ese Pradhan APRN Primary Care Provider [phone] [phone] Encounter Details Date Type Department Care Team (Late st Contact Info) Description 05/27/2025 Abstract [facility] Primary Care [address] [place] [address] Ese Pradhan APRN [address] [place] [address] Social History Tobacco Use Types [...] Description 11/02/2025 8:30 AM EDT Office Visit [facility] Cardiology - [address] [place] [address] Sirena Caldera MD [address] [place], [place] [address] 05/04/2026 9:00 AM EDT Office Visit [facility] Primary Care [address] [place] [address] Ese Pradhan, EMULSION COATER [address] [place] [address] documented as of this encounter Visit Diagnoses Not on filedocumented in this encounter Care Teams Supervisor Clam Bed Relationship Specialty Start Date End Date Ese Pradhan, EMULSION COATER [address] [place] [address] PCP - General Family Medicine 05/04/25 documented as of this encounter
== END 2025-06-09 23:59 | disposition home or self-care (01) ==
LOC: RAD 10:30
PROVIDERS: Visit Provider Physician Assistant
DX: S52.591D Other fractures of lower end of right radius, subsequent encounter for closed fracture with routine healing (principal); X58.XXXD Exposure to other specified factors, subsequent encounter
CPT/HCPCS: 73110

== ENCOUNTER 2025-07-07 09:16 | Outpatient (CLI) | payer OTHER, SELFPAY ==
--- NOTE | 2025-07-07 09:19 | XR_ITS ---
FINAL REPORT CLINICAL HISTORY: right wrist fx may 04 COMPARISON: 06/09/2025 FINDINGS: RIGHT WRIST Three views were obtained. There has been further healing of the transverse fracture involving the radial metaphysis. There is no significant displacement. The joint is intact. IMPRESSION: Continued radiographic evidence of healing of distal radial fracture. Reviewed, Interpreted and Dictated by Drake James MD Transcribed by Kassy Cabrera Authenticated and [facility]
--- OUTSIDE RECORDS SUMMARY | 2025-07-07 09:19 | XMS_ITS | Clinical Summary ---
Author Organization [employer] ([place], [place], [place], [place], [place]) Address [address] [place] [address] Care Team Providers Care Bead Worker Sewing Name Role Phone Carolynn Esexenia Kauffman APRN Primary Care Provider +1 -[phone] Allergies No known active allergies Medications UNKNOWN Vitamin D Digestive enzymes Erwin IGG 2000 Para 1 and Escalante 2 Biotoxin binder Advanced tudca Calming magnesium Activated b complex Hyst pro [place] 3 S.Boulardi . Active clobetasoL (CLOBEX) 0.05 [...] Encounters Date Type Department Care Team Description 05/04/2025 10:30 AM EDT Office Visit [facility] Primary Care [address] [place] [address] Ese Pradhan APRN Encounter to establish care (Primary Dx); Psoriasis; MVP (mitral valve prolapse) 05/04/2025 8:45 AM EDT Office Visit [facility] Cardiology - [address] [place] [address] Jazmin Fernandes DO Morton, Suzanne M, MD Cardiac murmur, previously undiagnosed (Primary Dx); Nonrheumatic mitral valve regurgitation; Mitral valve prolapse; Palpitations 05/04/2025 Travel from Last 3 Months Family History Medical History Relation Name Comments No Known Problem Father Dementia Maternal Grandmother Radha Shayla Heart disease Maternal Grandmother Radha Shayla No Known Problem Mother Relation Name Status Comments Father Alive Maternal Grandfather Alive Maternal Grandmother Radha Shayla Alive Mother Alive Social History Tobacco Use [...] Description 11/02/2025 8:30 AM EDT Office Visit [facility] Cardiology - [address] [place] [address] Sirena Caldera MD [address] [place] [address] 05/04/2026 9:00 AM EDT Office Visit [facility] Primary Care [address] [place] [address] Ese Pradhan, PRINCIPAL GIFTS OFFICER [address] [place] [address] Health Maintenance Due Date Last Done [...] mitral valve regurgitation Mitral valve prolapse Palpitations from Last 3 Months Results * ECG 12 lead (05/04/2025 12:16 PM EDT) us Sirena Caldera MD ECG ORDERABLES Final Result from Last 3 Months Insurance [facility] [employer] PLUS Care Teams Bead Worker Sewing Relationship Specialty Start Date End Date Ese Pradhan, PRINCIPAL GIFTS OFFICER [address] [place] [address] PCP - General Family Medicine 05/04/25
--- OUTSIDE RECORDS SUMMARY | 2025-07-07 09:19 | XMS_ITS | Referral Summary ---
Author Organization [employer] ([place], [place], [place], [place], [place]) Address [address] [place] [address] Care Team Providers Care Rail Transportation Operator Name Role Phone Ese Pradhan APRN Primary Care Provider [phone] [phone] Encounters Date Type Department Care Team Description 05/04/2025 10:30 AM EDT Office Visit [facility] Primary Care [address] [place] [address] Ese Pradhan APRN Encounter to establish care (Primary Dx); Psoriasis; MVP (mitral valve prolapse) 05/04/2025 Travel 05/04/2025 8:45 AM EDT Office Visit [facility] Cardiology - [facility] [address] [place] [address] Jazmin Fernandes DO Morton, Suzanne M, MD Cardiac murmur, previously undiagnosed (Primary Dx); Nonrheumatic mitral valve regurgitation; Mitral valve prolapse; Palpitations from Last 3 Months Allergies No known active allergies Medications UNKNOWN Vitamin D Digestive enzymes Erwin IGG 2000 Para 1 and Escalante 2 Biotoxin binder Advanced tudca Calming magnesium Activated b complex Hyst pro [place] 3 S.Boulardi . Active clobetasoL (CLOBEX) 0.05 [...] Description 11/02/2025 8:30 AM EDT Office Visit [facility] Cardiology - [facility] [address] [place] [address] Sirena Caldera MD [address] [facility] [address] [place] [address] 05/04/2026 9:00 AM EDT Office Visit [facility] Primary Care [address] [place] [address] Ese Pradhan, FOREST AND CONSERVATION WORKER [address] [place] [address] Procedures Procedure Name Priority Date/Time Associated Diagnosis Comments ECG 12-LEAD Routine 05/04/2025 12:16 PM EDT Cardiac murmur, previously undiagnosed Nonrheumatic mitral valve regurgitation Mitral valve prolapse Palpitations from Last 3 Months Results * ECG 12 lead (05/04/2025 12:16 PM EDT) Sirena Caldera MD ECG ORDERABLES Final Result from Last [address] [facility] [place] CHOICE PLUS Care Teams Rail Transportation Operator Relationship Specialty Start Date End Date Ese Pradhan FOREST AND CONSERVATION WORKER [address] [place] [address] PCP - General Family Medicine 05/04/25
== END 2025-07-07 23:59 | disposition home or self-care (01) ==
LOC: RAD 09:17
PROVIDERS: Visit Provider Physician Assistant
DX: S52.501D Unspecified fracture of the lower end of right radius, subsequent encounter for closed fracture with routine healing (principal); X58.XXXD Exposure to other specified factors, subsequent encounter
CPT/HCPCS: 73110

== ENCOUNTER 2025-07-24 08:00 | Outpatient (RCR) | payer OTHER, SELFPAY ==
--- NOTE | 2025-07-17 10:04 | HMH.OTOPEV ---
OT Evaluation Rehab OT Outpatient Eval Start: 07/17/25 09:04 Freq: Status: Active Protocol: Document 07/17/25 09:30 CAMELIAGEORGE (Rec: 07/17/25 10:00 PAULOHARLEY [id number]) E-signed By Dhara Zambrano, OT Outpatient Therapy Subjective History Subjective History The patient is a 19-year-old female referred to skilled occupational therapy services for a right distal radius fracture, approximately 10 weeks post-injury. She reported sustaining the injury on 05/04/25 while playing with her younger sibling, falling onto her right wrist after jumping on a pogo stick. The patient was immobilized in a cast for four weeks followed by additional time in a cock-up brace. A follow-up X-ray completed on 07/07/25 indicated routine healing. Patient presents with decreased wrist ROM, reduced oracle wms consultant strength, and diminished functional performance of the right upper extremity secondary to healing distal radius fracture. Findings indicate the need for skilled OT to address deficits through therapeutic exercise, activity modification, and functional task retraining to restore independence in ADLs and instrumental activities. Chief Complaint Pain Symptom Type Ache Symptoms Relieved By Nothing Prior Functional None Limitations Current Functional Reaching,Lifting,Sleeping Limitations Symptom Description Constant and Continuous Level of pain today 0 (0-10) Pain scale - at its 0 best (0-10) Pain scale - at its 8 worst (0-10) Wrist/Hand Eval Wrist Range of Motion Right Wrist Extension 30 Active Range of Motion (degrees) Wrist Flexion Active 30 Range of Motion ( degrees) Wrist Radial 10 Deviation Active Range of Motion ( degrees) Wrist Ulnar 10 Deviation Active Range of Motion ( degrees) Forearm Supination 30 Active Range of Motion (degrees) Forearm Pronation 80 Active Range of Motion (degrees) Access Nurse/Pinch Strength Right Access Nurse Strength 40 Measurement (lbs) Left Access Nurse Strength 75 Measurement (lbs) QuickDASH Activities Please rate your ability to do the following activities in the last week by selecting the number below the appropriate response. 1. Open a tight or Mild difficulty new jar. 2. Do heavy Mild difficulty web press operator apprentice (e. g., wash randolph, floors). 3. Carry a shopping No difficulty bag or briefcase. 4. Wash your back. Moderate difficulty 5. Use a knife to No difficulty cut food. 6. Recreational Moderate difficulty activities in which you take some force or impact through your arm, shoulder, or hand (e.g., golf, hammering, tennis, etc.). 7. During the past Moderately week, to what extent has your arm, shoulder or hand problem interfered with your normal social activities with family, friends , neighbors or groups? 8. During the past Slightly limited week, were you limited in your work or other regular daily activites as a result of your arm, shoulder or hand problem? 9. Arm, shoulder or Mild hand pain. 10. Tingling (pins None and needles) in your arm, shoulder or hand. 11. During the past No difficulty week, how much difficulty have you had sleeping because of the pain in your arm, shoulder or hand? Quick DASH 21 OT Patient Goals OT Patient Goals OT Short Term 1. Patient will increase R wrist AROM by at least 10?15 Patient Goals degrees in flexion/extension to improve functional reach and ADL performance. 2. Patient will demonstrate improved oracle wms consultant strength in the R hand by 5?10 lbs to support functional grasp during daily tasks. 3. Patient will perform light household tasks (e.g., opening containers, carrying light items) with the R hand with minimal discomfort (=2/10). 4. Patient will be independent and compliant with HEP as reported in 100% of sessions. OT Illuminator Patient 1. Patient will achieve near-symmetrical wrist AROM Goals compared to the L wrist to enable full participation in ADLs. 2. Patient will improve R oracle wms consultant strength to within 50# of the R hand for safe and efficient functional use. 3. Patient will complete all basic ADLs (e.g., grooming , hygiene, dressing) using the R hand with no more than 1/10 pain. 4. Patient will return to prior level of function, demonstrating the ability to lift, carry, and manipulate objects using the R hand without limitations . OT Outpatient Assessment Impairments Problems/Impairments Impaired Range of Motion,Impaired Strength,Subjective C /O Pain Prognosis Rehab Potential Good Clinical Impression Consistent with Yes Diagnosis Outpatient Therapy Plan of Care Treatment Plan May Include Therapeutic Exercise Yes Including Home Exercise Program Manual Therapy Yes Techniques Therapeutic Yes Activities to Return to Previous Functional/Work Level Thermal Modalities Yes Electrical Yes Stimulation Ultrasound/ Yes Phonophoresis Iontophoresis Yes Eval/Re-Eval Yes Frequency Times per week 2x/wk Duration Number of Weeks 4 weeks Addendums This patient is a No candidate for social or vocational rehab ? Patient/Guardian Yes verbally acknowledges understanding of treatment program and consents to further treatment? Patient/Guardian Yes verbally acknowledges understanding of diagnosis, prognosis and goals for treatment? Eval Complexity OT Charge 27516 - Low Complexity Shoulder/Elbow Eval Shoulder Objective Measurements Elbow Objective Measurements PHYSICIAN CERTIFICATION: I certify the specified therapy services for Kelley L Scholte are required, authorized, and reviewed every 30 days.
== END 2025-07-24 23:59 | disposition home or self-care (01) ==
LOC: OT 08:00
PROVIDERS: Visit Provider Physician Assistant
DX: Z09 Encounter for follow-up examination after completed treatment for conditions other than malignant neoplasm (principal); Z87.81 Personal history of (healed) traumatic fracture
CPT/HCPCS: 97032; 97035; 97140; 97165; 97530

== ENCOUNTER 2025-08-25 14:00 | Outpatient (RCR) | payer OTHER, SELFPAY | END 2025-08-25 23:59 | disposition home or self-care (01) | LOC: OT 14:00 | PROVIDERS: Visit Provider Physician Assistant | DX: S52.501D Unspecified fracture of the lower end of right radius, subsequent encounter for closed fracture with routine healing (principal) | CPT/HCPCS: 97014; 97018; 97032; 97035; 97110; 97140; G0283 ==